=== PATIENT | female | born 1970 | race Caucasian/White ===

== ENCOUNTER → 2016-11-09 | Outpatient (CLI) | payer OTHER ==
[2015-12-23 09:55] VITALS: BP 138/77
[~2016-11-09] MED LIST: GABA-585 PO; MELO7.5T5 PO; NAPR500T3 PO; ONDA4TAB10 SL; OXYC-323 PO; SENN-37 PO; SENN8.6T99 PO
--- NOTE | 2016-11-09 16:04 | RAD ---
PROCEDURE MRI lumbar spine without contrast. HISTORY Bilateral leg weakness TECHNIQUE Multiplanar, multi sequential non contrast MR imaging was performed of the lumbar spine. Contrast: COMPARISON None FINDINGS There is fairly advanced degenerative disc disease L5-S1, mild to moderate degenerative disc disease L3-4 mild disc desiccation L4-5. There are posterior annular tears at L3-4 and L5-S1. Trace L3-4 endplate edema is likely reactive/degenerative in etiology. Conus terminates at the inferior aspect of L2. Vertebral body stature and AP alignment are adequate. There is likely hemangioma of L3, also tiny focus of marrow signal abnormality of the T11 vertebral body more likely a small atypical hemangioma. Not fully included, there are probable cysts of the adnexal regions bilaterally, on the left estimated at 2.6 centimeters. There are multiple uterine masses. L1-L2: Spinal canal and neural foramina are adequate. L2-L3: Neural foramina and spinal canal are adequate. L3-4: There is negligible disc osteophyte complex. Neural foramina and spinal canal are adequate. L4-5: There is mild buckling of the ligamentum flavum and facet degenerative change. Spinal canal and neural foramina are adequate. L5-S1: There is very shallow protrusion more eccentric to the right lateral recess without significant impingement descending S1 nerve root. Spinal canal is overall adequate. Neural foramina are overall adequate. IMPRESSION 1. There is degenerative disc disease greatest L5-S1 and to a lesser degree at L3-4. There is no significant lumbar spinal stenosis or neural foramina compromise. 2. There are adnexal cysts bilaterally, also multiple uterine masses which are not fully included. Electronically signed by: Sanjay Del Rosario MD (Nov 09, 2016 16:03:47)
== END | disposition home or self-care (01) ==
LOC: MRI 14:53
PROVIDERS: ATTEND Family Medicine
DX: M51.37 Other intervertebral disc degeneration, lumbosacral region (principal); E27.8 Other specified disorders of adrenal gland
CPT/HCPCS: 72148

== ENCOUNTER → 2016-11-30 | Outpatient (CLI) | payer OTHER ==
[2015-12-23 09:55] VITALS: BP 138/77
--- NOTE | 2016-11-30 15:20 | RAD ---
Pelvic ultrasound, 11/30/2016: History: Uterine fibroids, abnormal MR exam Transabdominal scans were obtained. The uterus measures 13 x 6 x 7.8 cm. Its contour is lobulated. There are multiple, predominantly hypoechoic uterine masses compatible with fibroids. There is associated distortion of the central uterine echo complex. The visualized portion of the endometrium measures approximately 8 mm in AP dimension. There is a 5 cm hypoechoic mass arising from the right side of the uterus. There is a 4 cm hypoechoic uterine mass on the left. The ovaries are of normal size. There is a 2.2 cm simple cyst in the right ovary. The adnexal regions are otherwise unremarkable. No free fluid is evident in the pelvis. IMPRESSION: 1. Enlarged uterus containing multiple masses most compatible with fibroids. 2. Small right ovarian cyst.
== END | disposition home or self-care (01) ==
LOC: US 13:30
PROVIDERS: ATTEND Family Medicine
DX: D25.9 Leiomyoma of uterus, unspecified (principal); N83.201 Unspecified ovarian cyst, right side
CPT/HCPCS: 76856

== ENCOUNTER → 2016-12-09 | Outpatient (CLI) | payer OTHER ==
[2015-12-23 09:55] VITALS: BP 138/77
--- NOTE | 2016-12-09 10:21 | RAD ---
DATE: December 09, 2016 EXAM: DIGITAL SCREEN BILAT W/CAD HISTORY: Screening study COMPARISON: None. Baseline study. This study was interpreted with the benefit of Computerized Aided Detection (CAD). FINDINGS: The breast parenchyma is replaced with adipose tissue. There is asymmetric nodular density within the upper-outer quadrant of the right breast. Recommend focal compression views and 90 degree mediolateral view of the right breast. Increasing radiation left breast, there is a round nodule seen posteriorly and centrally. There are 2 nodules seen in the MLO projection of the left breast just above the nipple line. Recommend focal compression view left breast MLO projection and a 90 degree mediolateral view left of the breast. No clustering of pleomorphic microcalcifications are evident on either side. IMPRESSION: Bilateral breast nodules. Recommend additional mammographic views. Recommend bilateral breast sonography as well. BI-RADS CATEGORY: 0 INCOMPLETE: NEEDS ADDITIONAL IMAGING EVALUATION AND/OR PRIOR MAMMOGRAMS FOR COMPARISON. RECOMMENDED FOLLOW-UP: ADD ADDITIONAL IMAGING The patient's breast density may affect the ability of mammography to detect breast cancer. There are 4 categories of breast density, A, B, C and D. Breast density A means that most of the breast tissue is replaced with adipose tissue and therefore is not dense. Breast density B means that the breast tissue is mildly dense and scattered. Breast density C means that the breast tissue is heterogeneously dense. Breast density D means that the breast tissue is very dense. Breast densities especially C and D may decrease the sensitivity of mammography to detect breast cancer. Therefore, the patient may benefit from 3-D breast mammography (3D breast tomography) as a part of their screening mammogram. Insurance may or may not pay for this additional imaging. The patient's breast density based on today's mammogram is category an A. PQRS compliance statement: Patient information was entered into a reminder system with a target due date now for the next mammogram. Mammography is a sensitive method for finding small breast cancers, but it does not detect them all and is not a substitute for careful clinical examination. A negative mammogram does not negate a clinically suspicious finding and should not result in delay in biopsying a clinically suspicious abnormality. "Our facility is accredited by the [employer] Mammography Program."
== END | disposition home or self-care (01) ==
LOC: MAMMO 09:24
PROVIDERS: ATTEND Family Medicine
DX: Z12.31 Encounter for screening mammogram for malignant neoplasm of breast (principal)
CPT/HCPCS: G0202; 77067

== ENCOUNTER → 2016-12-16 | Outpatient (CLI) | payer OTHER ==
[2015-12-23 09:55] VITALS: BP 138/77
--- NOTE | 2016-12-16 16:41 | RAD ---
PROCEDURE MRI cervical spine without contrast. HISTORY Chronic worsening right arm weakness and numbness. TECHNIQUE Sagittal T1, sagittal T2, sagittal STIR, axial T2, and axial T2 gradient sequences are provided. COMPARISON None. FINDINGS There is 1-2 millimeters of anterolisthesis at C7-T1. There is otherwise no malalignment. There is no worrisome marrow lesion. There is a probable hemangioma at C7. There is no marrow edema. There is no cord signal abnormality. Cervicomedullary junction is unremarkable. Degenerative findings by individual level are as follows: C2-C3: There is no canal or foraminal compromise. C3-C4: There is a minimal disc bulge without canal or foraminal compromise. There is also minimal facet hypertrophy. C4-C5: There is no canal or foraminal compromise. C5-C6: Disc osteophyte complex and uncinate process spurring are noted without canal or foraminal compromise. C6-C7: There is no canal or foraminal compromise. C7-T1: There is facet hypertrophy with slight anterolisthesis at this level. There is mild foraminal narrowing. IMPRESSION Minimal degenerative changes in the cervical spine without any high-grade canal or foraminal compromise at any level. Electronically signed by: Piter Ibrahim MD (Dec 16, 2016 16:40:22)
== END | disposition home or self-care (01) ==
LOC: MRI 15:24
PROVIDERS: ATTEND Neurological Surgery
DX: M48.02 Spinal stenosis, cervical region (principal); M47.812 Spondylosis without myelopathy or radiculopathy, cervical region
CPT/HCPCS: 72141

== ENCOUNTER → 2016-12-18 | Outpatient (CLI) | payer OTHER ==
[2015-12-23 09:55] VITALS: BP 138/77
--- NOTE | 2016-12-18 14:22 | RAD ---
DATE: 12/18/2016 EXAM: DIGITAL DIAGNOSTIC BILATERAL, BREAST BILATERAL HISTORY: Suspicious screening study COMPARISON: 12/09/2016 This study was interpreted with the benefit of Computerized Aided Detection (CAD). FINDINGS: On the screening study a nodular opacity was noted in the upper outer quadrant of the right breast. A nodule is not clearly demonstrated on the spot compression views. A similar vague opacity is seen superiorly on the straight mediolateral view. This likely represents a patch of normal fibroglandular tissue. Additional views of the left breast confirm the presence of a small smooth 5 mm nodule projected over the posterior aspect of the left breast at the midline on the cc view. It is not clearly demonstrated on the straight mediolateral view but probably lies just superior to the midline of the breast. There are several other patchy fibroglandular type shadows projected over this region. Bilateral breast ultrasound, 12/18/2016: A targeted ultrasound exam of the right breast was performed in the upper outer quadrant. Heterogeneous fibroglandular shadows are evident. No cystic or solid breast nodule is seen. A targeted exam of the central aspect of the left breast was then performed. At the 9:00 location approximately 4 cm from the nipple there is a smooth oval-shaped hyperechoic nodule measuring approximately 8 x 9 x 5 mm. This does not appear to correspond in size or location to the mammographic abnormality. This has a relatively benign appearance and may be a lipoma. Breast malignancies are rarely hyperechoic. No other left breast abnormality is seen. IMPRESSION: 1. No right breast nodule is identified. The small density seen in the upper outer quadrant on the screening mammograms probably represents a patch of normal fibroglandular tissue. 2. Small, smooth benign-appearing central left breast nodule for which no sonographic correlate could be identified. 3. The left breast ultrasound did demonstrate a small benign-appearing hyperechoic nodule at the 9:00 location. 4. Follow-up bilateral mammograms and left breast ultrasound in 6 months is suggested to established stability of these probably benign findings BI-RADS CATEGORY: 3 PROBABLY BENIGN FINDING(S)-SHORT INTERVAL FOLLOW-UP SUGGESTED RECOMMENDED FOLLOW-UP: 6M 6 MONTH FOLLOW-UP PQRS compliance statement: Patient information was entered into a reminder system with a target due date for the next mammogram. Mammography is a sensitive method for finding small breast cancers, but it does not detect them all and is not a substitute for careful clinical examination. A negative mammogram does not negate a clinically suspicious finding and should not result in delay in biopsying a clinically suspicious abnormality. "Our facility is accredited by the [employer] Mammography Program."
== END | disposition home or self-care (01) ==
LOC: MAMMO 13:18
PROVIDERS: ATTEND Family Medicine
DX: R92.8 Other abnormal and inconclusive findings on diagnostic imaging of breast (principal)
CPT/HCPCS: 76641; G0204; 77066

== ENCOUNTER → 2017-02-02 | Outpatient (CLI) | payer OTHER ==
[2015-12-23 09:55] VITALS: BP 138/77
[~2017-02-02] MED LIST changes: +ACET500T68 PO; +ALPR0.5T PO; +ASCO100065 PO; +CHOL2000 PO; +GLUC1CAP48 PO; +IBUP-1027 PO; +IOHEXOL 180 MG/ML 10 ML VIAL. ONE; +MULT1TAB52 PO; +OMEG500C PO; +PARO30TA3 PO; +TURM500C7 PO; +methylPREDNISolone ACETATE 40 MG/ML VIAL. ONE; +methylPREDNISolone ACETATE 80 MG/ML VIAL. ONE
--- NOTE | 2017-02-03 01:59 | PAIN ---
DATE OF SERVICE: 02/02/2017 INITIAL CONSULTATION FOR PAIN CLINIC CHIEF COMPLAINT: Low back, bilateral lower extremity pain, right greater than left. HISTORY OF PRESENT ILLNESS: This is a 47-year-old female who presents with history of pain in low back for many years, about 20 years, worse over the past 2 years or so, gradually increasing, not a result of any specific injury or accident that she is aware of, but she had some work on her knees with medial and anterior cruciate ligament tears and the back pain became worse when she was rehabbing from this. The patient reports that since that time, it is becoming more noticeable in the low back, bilateral lower extremities, right greater than left in the posterior gluteus, posterior thigh, lateral thigh, anterior thigh, posterior calf into the foot with numbness in the right side as well, aching, radiating, sharp, constant, changes during the day, worse with standing and walking, better with sitting. It wakes her from sleep about 3-4 times at night; however, it does affect her ability to walk. She is not using any assistive devices; however. She feels that it does affect her bowel and bladder control, but without any loss of continence. The patient reports she has had some chiropractic treatment. She is doing just stretching and strengthening exercises on her own as well and notes this has helped to a moderate extent about 20%. The patient is taking ibuprofen, Tylenol, Lortab, which helps, but only to a moderate extent as well, maybe 5a0% at best, but she does get some stomach upset from the nonsteroidal anti-inflammatory medications. The patient reports otherwise her disability rating from 0 to 10, 10 being the worst, as a 6 with family and home responsibilities, recreation, social activity, 5 with occupation, sexual behavior, 4 with self care and life support activities. The patient did have an MRI scan of the lumbar spine dated 11/09/2016 showing degenerative disk disease, greatest at L5-S1 at lesser degree at L3-L4 with a very shallow protrusion at L5-S1 ____ lateral recess without significant impingement of the descending S1 nerve roots. PAST MEDICAL HISTORY: Significant for arthritis, urinary frequency. PREVIOUS SURGERY: Include right toe surgery, right knee ACL and MCL repair, fracture of the right ankle in the past requiring surgery, myomectomy for fibroids, right peroneal nerve transposition and wisdom teeth extraction. CURRENT MEDICATIONS: Include vitamins, glucosamine, fish oil, Xanax, ____, paroxetine, ibuprofen and Tylenol. ALLERGIES: The patient has no known drug allergies. SHE HAS NAUSEA FROM CODEINE. FAMILY HISTORY: Significant for lung cancer and strokes. SOCIAL HISTORY: The patient drinks 1-2 beers a week on average, does not smoke. She is , lives with her spouse. No children in the home and she lives locally here in [place], [place]. REVIEW OF SYSTEMS: Positive for those items mentioned in the history of present illness. It is completed in full, well documented. All systems reviewed and otherwise negative. It is complete and on the patient's chart. PHYSICAL EXAMINATION: VITAL SIGNS: The patient's blood pressure is 148/90, pulse is 78, respirations 98.4 degrees Fahrenheit, height is 5 feet 1 inch, weight is 237 pounds. GENERAL: The patient is awake, alert, oriented, appropriate, very pleasant demeanor. HEENT: Head shows normocephalic, atraumatic. Extraocular movements are intact, symmetrical. Oral cavity, mucous membranes are moist and pink. Dentition is intact. NECK: Shows anterior throat supple without palpable lymphadenopathy noted. Swallow reflex is symmetrical. CHEST: Shows normal on inspection. Breath sounds are clear to auscultation bilaterally. HEART: Shows S1 and S2 clear. ABDOMEN: Soft, obese, nontender, nondistended. No palpable organomegaly. No rebound or guarding demonstrated. BACK: Shows spine grossly midline. The patient's thoracic kyphotic curvature is normal in appearance as is lumbar lordotic curvature. Lumbar paraspinous musculature shows symmetrical on inspection. No atrophy or hypertrophy. With palpation shows some mild tenderness to palpation in the lower lumbar distribution bilaterally, but only diffusely without radiation. No tenderness over the spinous processes, sacrum or sacroiliac regions. The patient has good rotational motion of lumbar spine, both laterally greater than 10 degrees right and left as well as extension greater than 10 degrees, forward flexion 45 degrees without difficulty or pain reported. Lower extremities showed deep tendon reflexes 2+ in patellar, 1+ tendo-calcaneus tendons. Motor exam shows 5/5 dorsiflexion, extension, quadriceps and hamstring flexion are symmetrical. Peripheral pulses are 2+ posterior tibial and dorsalis pedis pulses. No peripheral edema is noted. No clubbing, no cyanosis. Lower extremities are warm and dry to touch, equal in color and appearance. Straight leg raise noted to be negative bilaterally as is Gaenslen's and Emeterio's maneuvers are negative bilaterally as well. The patient is able to stand, stand on her toes without difficulty or loss of balance, walks with a normal appearing gait for short distance in the office today, no assistive devices to assist with ambulation such as canes or walkers. IMPRESSION: 1. This is a 47-year-old female with a long history of low back pain, increased over the past 2 years or so with radicular qualities, right greater than left. 2. MRI scan as noted. 3. History of arthritis. PLAN: Options were discussed with the patient including conservative medical management, physical therapy, interventional techniques. She would like to pursue interventional techniques. We discussed lumbar epidural steroid injection using description as well as anatomical models to describe the procedure. Risks were then discussed including, but not limited to, bleeding, infection, possibility of epidural hematoma, subsequent neurologic compromise, dural puncture, headaches, spinal cord and/or nerve damage, side effects of steroid medication and poor results regarding pain control. The patient understands and wishes to proceed. The patient will return to clinic in approximately 2 weeks for followup, was counseled on return appointment, activity level and side effects to be aware of. DIAGNOSIS: Lumbar radiculopathy with lumbar degenerative disk disease. PROCEDURE: Lumbar epidural steroid injection in translaminar approach at the L5-S1 level using C-arm fluoroscopic guidance under sterile prep and drape using local anesthetic. MEDICATION INJECTED: Depo-Medrol 120 mg plus 10 mL preservative-free normal saline and 2 mL of Isovue for contrast. CONDITION AT DISCHARGE: Stable. The patient tolerated procedure well, had no complications. SAPNA TELLEZ MD DR: BENY/ellen JOB#: [id number] / [id number]
== END | disposition home or self-care (01) ==
LOC: PNCL 07:33
PROVIDERS: ATTEND Anesthesiology
DX: M51.16 Intervertebral disc disorders with radiculopathy, lumbar region (principal); M19.90 Unspecified osteoarthritis, unspecified site; Z80.1 Family history of malignant neoplasm of trachea, bronchus and lung; F41.9 Anxiety disorder, unspecified; F32.9 Major depressive disorder, single episode, unspecified; Z72.89 Other problems related to lifestyle; Z86.69 Personal history of other diseases of the nervous system and sense organs; Z88.6 Allergy status to analgesic agent
CPT/HCPCS: 62323; J1030; J1040

== ENCOUNTER 2017-02-14 01:23 | Observation (INO) | payer OTHER ==
[~2017-02-14] VITALS: Ht 154.9 cm; Wt 108.9 kg
[~2017-02-14 01:23] MED LIST changes: -IOHEXOL 180 MG/ML 10 ML VIAL. ONE; -methylPREDNISolone ACETATE 40 MG/ML VIAL. ONE; -methylPREDNISolone ACETATE 80 MG/ML VIAL. ONE
[2017-02-14 02:13] LABS: BILIRUBIN,URINE NEGATIVE (NEG); GLUCOSE,URINE NEGATIVE (NEG); NITRITE,URINE NEGATIVE (NEG); PH,URINE 5.5; PROTEIN,URINE NEGATIVE (NEG-TRACE); UROBILINOGEN,URINE 0.2 mg/dL (0.2 mg/dL)
[2017-02-14 02:20] LABS: BACTERIA,URINE FEW /HPF (0-FEW); RBC,URINE 0 /HPF (0-2); SQUAMOUS EPITHELIAL CELL,UR FEW /LPF; WBC,URINE OCC /HPF (0-4)
[2017-02-14 02:50] LABS: BASO # 0.1 x10^3/uL (0.0-0.2); BASO % 1 % (0-3); EOS % 1 % (0-3); HEMATOCRIT 41.8 % (36.0-47.0); HEMOGLOBIN 13.9 g/dL (12.0-15.5); LYMPH # 2.8 x10^3/uL (1.0-4.8); LYMPH % 22 % (24-48); MEAN CORPUSCULAR HEMOGLOBIN 29 pg (25-35); MEAN CORPUSCULAR HGB CONC 33 g/dL (31-37); MEAN CORPUSCULAR VOLUME 86 fL (79-100); MONO % 5 % (0-9); NEUT % 72 % (31-73); PLATELET COUNT 404 x10^3/uL (140-400); RED BLOOD COUNT 4.85 x10^6/uL (3.50-5.40); RED CELL DISTRIBUTION WIDTH 14.1 % (11.5-14.5)
[2017-02-14 02:59] LABS: CREATININE 0.7 mg/dL (0.6-1.0); GFR 90.5; POTASSIUM 3.9 mmol/L (3.5-5.1)
[2017-02-14 03:06] LABS: ALBUMIN 3.6 g/dL (3.4-5.0); ALBUMIN/GLOBULIN RATIO 0.8 (1.0-1.7); TOTAL BILIRUBIN 0.3 mg/dL (0.2-1.0); TOTAL PROTEIN 7.9 g/dL (6.4-8.2)
[2017-02-14] MEDS ORDERED: MECLIZINE HCL 12.5 MG TABLET. PO ONE (03:15)
[2017-02-14] MEDS ORDERED: IV NORMAL SALINE 1000ML BAG 1,000 ML IV ONE (03:15)
--- NOTE | 2017-02-14 03:22 | RAD ---
INDICATION: vertigo x 4 days COMPARISON: None. TECHNIQUE: Axial CT images obtained through the head without intravenous contrast. One or more of the following individualized dose reduction techniques were utilized for this examination: 1. Automated exposure control; 2. Adjustment of the mA and/or kV according to patient size; 3. Use of iterative reconstruction technique. FINDINGS: 5 mm region of high attenuation extra-axial space on the right near vertex No midline shift. Basal cisterns patents. Ventricles and sulci are globally prominent. No acute osseous abnormality. Orbits and paranasal sinuses unremarkable. Scattered foci of low attenuation within the white matter. IMPRESSION: 1. 5 mm thick region of high attenuation just deep to the calvarium near the vertex on the right. This could be secondary to causes such as a cortical vein coursing through the region but if there is any clinical concern for hemorrhage could be helpful to obtain a follow-up CT in a few hours to ensure no increase in this finding to ensure that there is not an alternative cause such as a small amount of subdural blood. 2. Scattered regions of low attenuation within the white matter. Non-specific in nature but frequently secondary to chronic small vessel ischemic disease. 3. Prominence of ventricles and sulci which is most prominent frontally which can be seen with mild volume loss. Electronically signed by: Dylan Prakash MD (02/14/2017 3:18 AM)
--- NOTE | 2017-02-14 03:53 | PHYS DOC ---
Past Medical History Past Medical History: No Pertinent History, Other Additional Past Medical Histor: DEGENERATIVE DISC DISEASE Past Surgical History: Other Additional Past Surgical Histo: myelectomy x 2, ankle sx, RIGHT KNEE Alcohol Use: Occasionally Drug Use: None Adult General Chief Complaint Chief Complaint: DIZZY/LIGHT HEADED HPI HPI Patient is a 47 year old female who presents here today complaining of dizziness for 4 days along with a headache during that time period as well. 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 Patient denies any fevers shakes chills vomiting or diarrhea. Patient has any chest pain or shortness of breath. Patient denies any dysuria frequency urgency. Patient denies any URI symptoms. Patient denies any new weakness to her lower extremities. Patient reports that she generally has some weakness to her lower 70 secondary to her bilateral lumbar radiculopathy. Patient denies any history of hypertension diabetes liver longer kidney problems. Patient has had no abdominal surgeries in the past. Patient does not smoke drink or do any drugs. 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 Patient denies any head trauma. Patient reports that she's been having dizziness and vertigo-type symptoms. Patient reports that she told her coworkers that if she fell to the ground E benign her. Patient does not feel like she is going to pass out. Patient reports that she feels like the room is spinning and she is on a boat. Patient's physical exam was unremarkable. Patient's TMs were clear. There was no fluid behind the ear canals. Patient's pupils were equally round and reactive to light. Her extraocular motions were intact. Patient had normal funduscopic exam. Patient's heart with regular rate. Lungs were clear. Her abdomen was soft nontender no rebound or guarding. Patient has a nonfocal neurological exam. Patient's ER workup was unremarkable except for a CT scan that had a possible sub-dural hemorrhage. 1. 5 mm thick region of high attenuation just deep to the calvarium near the vertex on the right. This could be secondary to causes such as a cortical vein coursing through the region but if there is any clinical concern for hemorrhage could be helpful to obtain a follow-up CT in a few hours to ensure no increase in this finding to ensure that there is not an alternative cause such as a small amount of subdural blood. 2. Scattered regions of low attenuation within the white matter. Non-specific in nature but frequently secondary to chronic small vessel ischemic disease. 3. Prominence of ventricles and sulci which is most prominent frontally which can be seen with mild volume loss. Electronically signed by: Dylan Prakash MD (02/14/2017 3:18 AM) Given the patient's complaining of a headache and the CT scan that reveals a 5 mm region of high attenuation that is potentially subdural blood we will admit her for observation. Assessment and plan: Dizziness with a headache. Etiology is unclear however patient does have an abnormal CT scan that will require admission for observation. Patient was given meclizine and IV fluids in the ED was no improvement in her headache. Patient reports that her headache is worse since yesterday fluids. Review of Systems Review of Systems Constitutional: Denies fever or chills [] Eyes: Denies change in visual acuity, redness, or eye pain [] HENT: Denies nasal congestion or sore throat [] All other review systems are negative except as documented in the history of present illness portion. Current Medications Current Medications Current Medications Medications (Trade) Dose Ordered Sig/Tomas Start Time Stop Time Status Last Admin Dose Admin Meclizine HCl (Antivert) 25 mg 1X ONCE 02/14/17 03:15 02/14/17 03:16 DC 02/14/17 03:12 25 MG Sodium Chloride 1,000 ml @ 1,000 mls/hr 1X ONCE 02/14/17 03:15 02/14/17 04:14 DC 02/14/17 02:56 1,000 MLS/HR Allergies Allergies Allergies Coded Allergies Type Severity Reaction Last Updated Verified codeine Allergy Intermediate Nausea 12/23/15 Yes Physical Exam Physical Exam Constitutional: Well developed, well nourished, no acute distress, non-toxic appearance. [] HENT: Normocephalic, atraumatic, bilateral external ears normal, oropharynx moist, no oral exudates, nose normal. [] Eyes: PERRLA, EOMI, conjunctiva normal, no discharge. [] Neck: Normal range of motion, no tenderness, supple, no stridor. [] Cardiovascular:Heart rate regular rhythm, no murmur [] Lungs & Thorax: Bilateral breath sounds clear to auscultation [] Abdomen: Bowel sounds normal, soft, no tenderness, no masses, no pulsatile masses. [] Skin: Warm, dry, no erythema, no rash. [] Back: No tenderness, no CVA tenderness. [] Extremities: No tenderness, no cyanosis, no clubbing, ROM intact, no edema. [] Neurologic: Alert and oriented X 3, normal motor function, normal sensory function, no focal deficits noted. [] Psychologic: Affect normal, judgement normal, mood normal. [] Current Patient Data Vital Signs Vital Signs Date Time Temp Pulse Resp B/P (MAP) Pulse Ox O2 Delivery O2 Flow Rate FiO2 02/14/17 02:02 98.0 88 16 137/78 (97) 98 Room Air 98.0 Lab Values Laboratory Tests Test 02/14/17 01:08 02/14/17 01:47 02/14/17 02:40 POC Urine HCG, Qualitative Hcg negative (Negative) Urine Collection Type Unknown Urine Color Yellow Urine Clarity Clear Urine pH 5.5 Urine Specific [place] >=1.030 Urine Protein Negative mg/dL (NEG-TRACE) Urine Glucose (UA) Negative mg/dL (NEG) Urine Ketones (Stick) Negative mg/dL (NEG) Urine Blood Negative (NEG) Urine Nitrite Negative (NEG) Urine Bilirubin Negative (NEG) Urine Urobilinogen Dipstick 0.2 mg/dL (0.2 mg/dL) Urine Leukocyte Esterase Negative (NEG) Urine RBC 0 /HPF (0-2) Urine WBC Occ /HPF (0-4) Urine Squamous Epithelial Cells Few /LPF Urine Bacteria Few /HPF (0-FEW) Urine Mucus Mod /LPF White Blood Count 13.0 x10^3/uL (4.0-11.0) H Red Blood Count 4.85 x10^6/uL (3.50-5.40) Hemoglobin 13.9 g/dL (12.0-15.5) Hematocrit 41.8 % (36.0-47.0) Mean Corpuscular Volume 86 fL (79-100) Mean Corpuscular Hemoglobin 29 pg (25-35) Mean Corpuscular Hemoglobin Concent 33 g/dL (31-37) Red Cell Distribution Width 14.1 % (11.5-14.5) Platelet Count 404 x10^3/uL (140-400) H Neutrophils (%) (Auto) 72 % (31-73) Lymphocytes (%) (Auto) 22 % (24-48) L Monocytes (%) (Auto) 5 % (0-9) Eosinophils (%) (Auto) 1 % (0-3) Basophils (%) (Auto) 1 % (0-3) Neutrophils # (Auto) 9.3 x10^3uL (1.8-7.7) H Lymphocytes # (Auto) 2.8 x10^3/uL (1.0-4.8) Monocytes # (Auto) 0.6 x10^3/uL (0.0-1.1) Eosinophils # (Auto) 0.1 x10^3/uL (0.0-0.7) Basophils # (Auto) 0.1 x10^3/uL (0.0-0.2) Sodium Level 138 mmol/L (136-145) Potassium Level 3.9 mmol/L (3.5-5.1) Chloride Level 102 mmol/L (98-107) Carbon Dioxide Level 28 mmol/L (21-32) Anion Gap 8 (6-14) Blood Urea Nitrogen 23 mg/dL (7-20) H Creatinine 0.7 mg/dL (0.6-1.0) Estimated GFR (Cockcroft-Gault) 90.5 BUN/Creatinine Ratio 33 (6-20) H Glucose Level 101 mg/dL (70-99) H Calcium Level 9.0 mg/dL (8.5-10.1) Total Bilirubin 0.3 mg/dL (0.2-1.0) Aspartate Amino Transferase (AST) 16 U/L (15-37) Alanine Aminotransferase (ALT) 25 U/L (14-59) Alkaline Phosphatase 63 U/L (46-116) Troponin I Quantitative < 0.017 ng/mL (0.000-0.055) Total Protein 7.9 g/dL (6.4-8.2) Albumin 3.6 g/dL (3.4-5.0) Albumin/Globulin Ratio 0.8 (1.0-1.7) L Laboratory Tests 02/14/17 02:40 Laboratory Tests 02/14/17 02:40 EKG EKG [] Radiology/Procedures Radiology/Procedures [] Course & Med Decision Making Course & Med Decision Making Pertinent Labs and Imaging studies reviewed. (See chart for details) [] Dragon Disclaimer Dragon Disclaimer This electronic medical record was generated, in whole or in part, using a voice recognition dictation system. Departure Departure Impression: Primary Impression: Headache Additional Impressions: Vertigo Abnormal CT scan of head Disposition: ADMITTED INPATIENT Admitting Physician: Avis Sawyer Condition: STABLE Referrals: VERONICA CLARK MD (PCP) Problem Qualifiers DELMY JAVIER MD Feb 14, 2017 03:53
[2017-02-14] MEDS: IV NORMAL SALINE 1000ML BAG 1,000 ML IV SCH ×3 (03:55→19:55)
[2017-02-14] MEDS ORDERED: ONDANSETRON PF 4 MG/2 ML VIAL. IV PRN (04:00)
--- NOTE | 2017-02-14 04:19 | ACF ---
Admit Criteria Forms Admit Criteria Forms Admit Criteria Forms VERTIGO Clinical Indications for Admission to Inpatient Care (Place 'X' for any and all applicable criteria): Admission is indicated for ANY ONE of the following(1)(2)(3)(4): [ ]I. Acute bacterial labyrinthitis [X]II. A suspected etiology that requires admission for treatment [ ]III. Inpatient admission required rather than observation care (Also use Vertigo: Observation Care as appropriate) because of ANY ONE of the following: [ ]a) Hemodynamic instability that is severe or persistent [ ]b) Signs or symptoms that are severe or persistent (eg, vomiting , orthostasis, inability to ambulate) [ ]c) Cardiac arrhythmias of immediate concern [ ]d) Severe (new) neurologic findings requiring inpatient care as indicated by ANY ONE of the following(6)(7) [ ]1) Cerebral bleeding, ischemia, or vasospasm(8)(9) [ ]2) Increased intracranial pressure or hydrocephalus(10) (11)(12) [ ]3) Papilledema [ ]4) Cerebral edema [ ]5) Mass effect on CT scan [ ]e) Vomiting that is severe or persistent [ ]f) Continuous IV infusion of anticoagulation, platelet inhibitor, vasoactive, or antiarrhythmic medication [ ]g) Cerebral bleeding, hydrocephalus, or vasospasm monitoring(14) [ ]h) Increased intracranial pressure or cerebral edema monitoring [ ]i) Other condition, treatment or monitoring requiring inpatient admission [ ]IV. Cerebellar, brainstem, or cerebral ischemia or hemorrhage(5) Extended stay beyond goal length of stay may be needed for evaluating and treating a specific cause of dizziness, including(26): [ ]a) Head injury (27) ( Also use Traumatic Brain Injury, Nonsurgical Treatment guideline) [ ]b) New-onset vertebrobasilar vascular insufficiency(23) [ ]c) Acute Meniere disease with intractable symptoms [ ]d) Cardiac arrhythmias or conduction defects [ ]e) Acute neurologic event causing dizziness [ ]f) Myocardial ischemia [ ]g) Acute bacterial labyrinthitis(1) [ ]h) Severe acute vestibular neuronitis(18) The original [employer] [employer] content created by Judi Nichols has been revised. The portions of the content which have been revised are identified through the use of italic text or in bold, and [employer] has neither reviewed nor approved the modified material. All other unmodified content is copyright [facility]. Please see references footnoted in the original [facility] edition 2016 IN[employer]IA PICKENS Feb 14, 2017 04:19
[2017-02-14] MEDS: fentaNYL PF VIAL 100 MCG/2 ML VIAL IV PRN ×5 (04:22→23:38)
[2017-02-14 05:31] VITALS: BP 139/80
[2017-02-14 07:57] VITALS: BP 119/56
[2017-02-14] MEDS: ACETAMINOPHEN 325 MG TABLET. PO PRN ×2 (08:04→20:07)
[2017-02-14] MEDS ORDERED: ALPRAZolam 0.5 MG TABLET PO PRN (10:00)
--- NOTE | 2017-02-14 10:42 | PDOC1 ---
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 acute dizziness for 3 days w. worsening headache. She has recent epidural at [facility] [place] [facility] for back pain, 12 days ago, and had felt well. lumbar radiculopathy no fever or chills sore throat or cough no travel, has not been to the [place] she feels "wobbly" "like I'm on a boat" she has chronic brisk LE relexes from min spinal cervical stenosis, has seen Dr. Wynn, surg is being considered, he wanted pt to see pain clinic for back pain first. no back pain, only headache Past Medical History Cardiovascular: No pertinent hx CENTRAL NERVOUS SYSTEM: Other (cervical radilulopathy, back pain, ) GI: No pertinent hx Heme/Onc: No pertinent hx Hepatobiliary: No pertinent hx Psych: Anxiety Endocrine: Other (obesity) Dermatology: No pertinent hx Social History Smoke: No ALCOHOL: none Drugs: None Current Problem List Problem List Problems Medical Problems: (1) Abnormal CT scan of head Status: Acute (2) Headache Status: Acute (3) Vertigo Status: Acute Problems: Current Medications Current Medications Current Medications Sodium Chloride 1,000 ml @ 1,000 mls/hr 1X ONCE IV Last administered on 02:56; Start 02/14/17 at 03:15; Stop 02/14/17 at 04:14; Status DC Meclizine HCl (Antivert) 25 mg 1X ONCE PO Last administered on 02/14/17 03:12 ; Start 02/14/17 at 03:15; Stop 02/14/17 at 03:16; Status DC Ondansetron HCl (Zofran) 4 mg PRN Q8HRS PRN IV NAUSEA/VOMITING Last administered on 02/14/17 04:22; Start 02/14/17 at 04:00; Stop 02/15/17 at 03:59 Fentanyl Citrate (Fentanyl 2ml Vial) 50 mcg PRN Q2HR PRN IV SEVERE PAIN Last administered on 02/14/17 09:22; Start 02/14/17 at 04:00; Stop 02/15/17 at 03:59 Sodium Chloride 1,000 ml @ 125 mls/hr Q8H IV ; Start 02/14/17 at 03:55; Stop at 03:54 Acetaminophen (Tylenol) 650 mg PRN Q4HRS PRN PO FEVER Last administered on 02/14t 08:04; Start 02/14/17 at 04:00; Stop 02/15/17 at 03:59 Acetaminophen (Tylenol) 1,000 mg DAILY PO ; Start 02/15/17 at 09:00; Status UNV Alprazolam (Xanax) 0.5 mg PRN Q6HRS PRN PO ANXIETY / AGITATION; Start 02/14/17 at 10:00; Status UNV Non-Formulary Medication 30 mg DAILY PO ; Start 02/15/17 at 09:00; Status UNV Active Scripts Active Reported Vitamin D (Cholecalciferol (Vitamin D3)) 2,000 Unit Capsule 1 Cap PO DAILY Vitamin C (Ascorbic Acid) 1,000 Mg Tab.chew 1,000 Mg PO DAILY Multivitamins (Multivitamin) 1 Each Tablet 1 Tab PO DAILY Glucosamine & Chondroitin Cap (Gluc 2KCL/Chondr/Pk Hy/Hy Ac) 1 Each Capsule 2 Each PO Fish Oil (Sandy-3 Fatty Acids) 500 Mg Capsule.dr 1,000 Mg PO Turmeric (Turmeric Root Extract) 500 Mg Capsule 1,000 Mg PO Xanax (Alprazolam) 0.5 Mg Tablet 0.5 Mg PO PRN Q6HRS PRN Paroxetine Hcl 30 Mg Tablet 30 Mg PO DAILY Acetaminophen 500 Mg Tablet 1,000 Mg PO DAILY Ibuprofen 400 Mg Tablet 400 Mg PO QID PRN Allergies Allergies: Coded Allergies: codeine (Verified Allergy, Intermediate, Nausea, 12/23/15) ROS General: No: Chills, Night Sweats, Fatigue, Malaise, Appetite, Other PSYCHOLOGICAL ROS: No: Anxiety, Behavioral Disorder, Concentration difficultie , Decreased libido, Depression, Disorientation, Hallucinations, Hostility, Irritablity, Memory difficulties, Mood Swings, Obsessive thoughts, Physical abuse, Sexual abuse, Sleep disturbances, Suicidal ideation, Other Eyes: No Blurry vision, No Decreased vision, No Double vision, No Dry eyes, No Excessive tearing, No Eye Pain, No Itchy Eyes, No Loss of vision, No Photophobia , No Scotomata, No Uses contacts, No Uses glasses, No Other HEENT: YES: Heacaches, No: Visual Changes, Hearing change, Nasal congestion, Nasal discharge, Oral lesions, Sinus pain, Sore Throat, Epistaxis, Sneezing, Snoring, Tinnitus, Vertigo, Vocal changes, Other ALLERGY AND IMMUNOLOGY: No: Hives, Insect Bite Sensitivity, Itchy/Watery Eyes, Nasal Congestion, Post Nasal Drip, Seasonal Allergies, Other ENDOCRINE: No: Breast Changes, Galactorrhea, Hair Pattern Changes, Hot Flashes , Malaise/lethargy, Mood Swings, Palpitations, Polydipsia/polyuria, Skin Changes , Temperature Intolerance, Unexpected Weight Changes, Other Breast: No New/Changing Breast Lumps, No Nipple changes, No Nipple discharge, No Other Respiratory: No: Cough, Hemoptysis, Orthopnea, Pleuritic Pain, Shortness of breath, SOB with excertion, Sputum Changes, Stridor, Tachypnea, Wheezing, Other Cardiovascular: No Chest Pain, No Palpitations, No Orthopnea, No Paroxysmal Noc. Dyspnea, No Edema, No Lt Headedness, No Other Gastrointestinal: Yes Nausea, No Vomiting, No Abdominal Pain, No Diarrhea, No Constipation, No Melena, No Hematochezia, No Other Genitourinary: No Dysuria, No Frequency, No Incontinence, No Hematuria, No Retention, No Discharge, No Urgency, No Pain, No Flank Pain, No Other, No , No , No , No , No , No , No Musculoskeletal: No Gait Disturbance, No Joint Pain, No Joint Stiffness, No Joint Swelling, No Muscle Pain, No Muscular Weakness, No Pain In:, No Swelling In:, No Other Neurological: Yes Headaches, Yes Impaired Coord/balance, No Behavorial Changes, No Bowel/Bladder ControlChng, No Confusion, No Dizziness, No Gait Disturbance, No Memory Loss, No Numbness/Tingling, No Seizures, No Speech Problems, No Tremors, No Visual Changes, No Weakness, No Other Skin: No Dry Skin, No Eczema, No Hair Changes, No Lumps, No Mole Changes, No Mottling, No Nail Changes, No Pruritus, No Rash, No Skin Lesion Changes, No Other, No Acne Physical Exam General: Alert, Oriented X3, Cooperative, No acute distress HEENT: Atraumatic, PERRLA Lungs: Clear to auscultation Heart: no gallops, no murmurs Abdomen: Normal bowel sounds, Soft Rectal Exam: not examined Extremities: No clubbing, No edema Skin: No breakdown Neuro: Other (reflexes very brisk patellar) Psych/Mental Status: Mental status NL, Mood NL, Other (reports anxiety, feels calm) Vitals Vitals Vital Signs Date Time Temp Pulse Resp B/P (MAP) Pulse Ox O2 Delivery O2 Flow Rate FiO2 02/14/17 10:07 97 Room Air 02/14/17 07:57 98.1 119 15 119/56 (77) 98.1 Labs Labs Laboratory Tests Test 02/14/17 01:08 02/14/17 01:47 02/14/17 02:40 Bedside Urine HCG, Qualitative Hcg negative (Negative) Urine Collection Type Unknown Urine Color Yellow Urine Clarity Clear Urine pH 5.5 Urine Specific [place] >=1.030 Urine Protein Negative mg/dL (NEG-TRACE) Urine Glucose (UA) Negative mg/dL (NEG) Urine Ketones (Stick) Negative mg/dL (NEG) Urine Blood Negative (NEG) Urine Nitrite Negative (NEG) Urine Bilirubin Negative (NEG) Urine Urobilinogen Dipstick 0.2 mg/dL (0.2 mg/dL) Urine Leukocyte Esterase Negative (NEG) Urine RBC 0 /HPF (0-2) Urine WBC Occ /HPF (0-4) Urine Squamous Epithelial Cells Few /LPF Urine Bacteria Few /HPF (0-FEW) Urine Mucus Mod /LPF White Blood Count 13.0 x10^3/uL (4.0-11.0) Red Blood Count 4.85 x10^6/uL (3.50-5.40) Hemoglobin 13.9 g/dL (12.0-15.5) Hematocrit 41.8 % (36.0-47.0) Mean Corpuscular Volume 86 fL (79-100) Mean Corpuscular Hemoglobin 29 pg (25-35) Mean Corpuscular Hemoglobin Concent 33 g/dL (31-37) Red Cell Distribution Width 14.1 % (11.5-14.5) Platelet Count 404 x10^3/uL (140-400) Neutrophils (%) (Auto) 72 % (31-73) Lymphocytes (%) (Auto) 22 % (24-48) Monocytes (%) (Auto) 5 % (0-9) Eosinophils (%) (Auto) 1 % (0-3) Basophils (%) (Auto) 1 % (0-3) Neutrophils # (Auto) 9.3 x10^3uL (1.8-7.7) Lymphocytes # (Auto) 2.8 x10^3/uL (1.0-4.8) Monocytes # (Auto) 0.6 x10^3/uL (0.0-1.1) Eosinophils # (Auto) 0.1 x10^3/uL (0.0-0.7) Basophils # (Auto) 0.1 x10^3/uL (0.0-0.2) Sodium Level 138 mmol/L (136-145) Potassium Level 3.9 mmol/L (3.5-5.1) Chloride Level 102 mmol/L (98-107) Carbon Dioxide Level 28 mmol/L (21-32) Anion Gap 8 (6-14) Blood Urea Nitrogen 23 mg/dL (7-20) Creatinine 0.7 mg/dL (0.6-1.0) Estimated GFR (Cockcroft-Gault) 90.5 BUN/Creatinine Ratio 33 (6-20) Glucose Level 101 mg/dL (70-99) Calcium Level 9.0 mg/dL (8.5-10.1) Total Bilirubin 0.3 mg/dL (0.2-1.0) Aspartate Amino Transf (AST/SGOT) 16 U/L (15-37) Alanine Aminotransferase (ALT/SGPT) 25 U/L (14-59) Alkaline Phosphatase 63 U/L (46-116) Troponin I Quantitative < 0.017 ng/mL (0.000-0.055) Total Protein 7.9 g/dL (6.4-8.2) Albumin 3.6 g/dL (3.4-5.0) Albumin/Globulin Ratio 0.8 (1.0-1.7) Laboratory Tests Test 02/14/17 01:08 02/14/17 01:47 02/14/17 02:40 Bedside Urine HCG, Qualitative Hcg negative (Negative) Urine Collection Type Unknown Urine Color Yellow Urine Clarity Clear Urine pH 5.5 Urine Specific [place] >=1.030 Urine Protein Negative mg/dL (NEG-TRACE) Urine Glucose (UA) Negative mg/dL (NEG) Urine Ketones (Stick) Negative mg/dL (NEG) Urine Blood Negative (NEG) Urine Nitrite Negative (NEG) Urine Bilirubin Negative (NEG) Urine Urobilinogen Dipstick 0.2 mg/dL (0.2 mg/dL) Urine Leukocyte Esterase Negative (NEG) Urine RBC 0 /HPF (0-2) Urine WBC Occ /HPF (0-4) Urine Squamous Epithelial Cells Few /LPF Urine Bacteria Few /HPF (0-FEW) Urine Mucus Mod /LPF White Blood Count 13.0 x10^3/uL (4.0-11.0) Red Blood Count 4.85 x10^6/uL (3.50-5.40) Hemoglobin 13.9 g/dL (12.0-15.5) Hematocrit 41.8 % (36.0-47.0) Mean Corpuscular Volume 86 fL (79-100) Mean Corpuscular Hemoglobin 29 pg (25-35) Mean Corpuscular Hemoglobin Concent 33 g/dL (31-37) Red Cell Distribution Width 14.1 % (11.5-14.5) Platelet Count 404 x10^3/uL (140-400) Neutrophils (%) (Auto) 72 % (31-73) Lymphocytes (%) (Auto) 22 % (24-48) Monocytes (%) (Auto) 5 % (0-9) Eosinophils (%) (Auto) 1 % (0-3) Basophils (%) (Auto) 1 % (0-3) Neutrophils # (Auto) 9.3 x10^3uL (1.8-7.7) Lymphocytes # (Auto) 2.8 x10^3/uL (1.0-4.8) Monocytes # (Auto) 0.6 x10^3/uL (0.0-1.1) Eosinophils # (Auto) 0.1 x10^3/uL (0.0-0.7) Basophils # (Auto) 0.1 x10^3/uL (0.0-0.2) Sodium Level 138 mmol/L (136-145) Potassium Level 3.9 mmol/L (3.5-5.1) Chloride Level 102 mmol/L (98-107) Carbon Dioxide Level 28 mmol/L (21-32) Anion Gap 8 (6-14) Blood Urea Nitrogen 23 mg/dL (7-20) Creatinine 0.7 mg/dL (0.6-1.0) Estimated GFR (Cockcroft-Gault) 90.5 BUN/Creatinine Ratio 33 (6-20) Glucose Level 101 mg/dL (70-99) Calcium Level 9.0 mg/dL (8.5-10.1) Total Bilirubin 0.3 mg/dL (0.2-1.0) Aspartate Amino Transf (AST/SGOT) 16 U/L (15-37) Alanine Aminotransferase (ALT/SGPT) 25 U/L (14-59) Alkaline Phosphatase 63 U/L (46-116) Troponin I Quantitative < 0.017 ng/mL (0.000-0.055) Total Protein 7.9 g/dL (6.4-8.2) Albumin 3.6 g/dL (3.4-5.0) Albumin/Globulin Ratio 0.8 (1.0-1.7) Images Images 1. 5 mm thick region of high attenuation just deep to the calvarium near the vertex on the right. This could be secondary to causes such as a cortical vein coursing through the region but if there is any clinical concern for hemorrhage could be helpful to obtain a follow-up CT in a few hours to ensure no increase in this finding to ensure that there is not an alternative cause such as a small amount of subdural blood. 2. Scattered regions of low attenuation within the white matter. Non-specific in nature but frequently secondary to chronic small vessel ischemic disease. 3. Prominence of ventricles and sulci which is most prominent frontally which can be seen with mild volume loss. VTE Prophylaxis Ordered VTE Prophylaxis Devices: No VTE Pharmacological Prophylaxi: No Assessment/Plan Assessment/Plan headache nausea, some sensation of vertigo "like I'm on a boat" recent Epidural, but 12 days ago, long timeline for CSF leak, no white count or fever or other sign of infection no meningismus, neuro exam largely stable from previous, 1 beat nystagmus Neuro consulted, consider LP, opening pressures, SUMEET LARA MD Feb 14, 2017 10:41
[2017-02-14 10:46] VITALS: BP 142/77
[2017-02-14] MEDS: PARoxetine 10 MG TABLET PO SCH (11:00)
[2017-02-14] MEDS: ACETAMINOPHEN 500 MG TABLET PO SCH (11:48)
--- NOTE | 2017-02-14 12:20 | PDOC2 ---
NEUROLOGY CONSULT Date of Admission Date of Admission Full Report Dictated DATE: 02/14/17 TIME: 12:18 Current Medications Current Medications Current Medications Sodium Chloride 1,000 ml @ 1,000 mls/hr 1X ONCE IV Last administered on 02:56; Start 02/14/17 at 03:15; Stop 02/14/17 at 04:14; Status DC Meclizine HCl (Antivert) 25 mg 1X ONCE PO Last administered on 02/14/17 03:12 ; Start 02/14/17 at 03:15; Stop 02/14/17 at 03:16; Status DC Ondansetron HCl (Zofran) 4 mg PRN Q8HRS PRN IV NAUSEA/VOMITING Last administered on 02/14/17 04:22; Start 02/14/17 at 04:00; Stop 02/15/17 at 03:59 Fentanyl Citrate (Fentanyl 2ml Vial) 50 mcg PRN Q2HR PRN IV SEVERE PAIN Last administered on 02/14/17 11:49; Start 02/14/17 at 04:00; Stop 02/15/17 at 03:59 Sodium Chloride 1,000 ml @ 125 mls/hr Q8H IV ; Start 02/14/17 at 03:55; Stop at 03:54 Acetaminophen (Tylenol) 650 mg PRN Q4HRS PRN PO FEVER Last administered on 02/14 08:04; Start 02/14/17 at 04:00; Stop 02/15/17 at 03:59 Acetaminophen (Tylenol) 1,000 mg DAILY PO Last administered on 02/14/17 11:48 ; Start 02/14/17 at 11:00 Alprazolam (Xanax) 0.5 mg PRN Q6HRS PRN PO ANXIETY / AGITATION; Start 02/14/17 at 10:00 Paroxetine HCl (Paxil) 30 mg DAILY PO ; Start 02/14/17 at 11:00 Meclizine HCl (Antivert) 25 mg TID PO ; Start 02/14/17 at 12:00 Diazepam (Valium) 2 mg TID PO ; Start 02/14/17 at 14:00 Active Scripts Active Reported Vitamin D (Cholecalciferol (Vitamin D3)) 2,000 Unit Capsule 1 Cap PO DAILY Vitamin C (Ascorbic Acid) 1,000 Mg Tab.chew 1,000 Mg PO DAILY Multivitamins (Multivitamin) 1 Each Tablet 1 Tab PO DAILY Glucosamine & Chondroitin Cap (Gluc 2KCL/Chondr/Pk Hy/Hy Ac) 1 Each Capsule 2 Each PO Fish Oil ([place]-3 Fatty Acids) 500 Mg Capsule.dr 1,000 Mg PO Turmeric (Turmeric Root Extract) 500 Mg Capsule 1,000 Mg PO Xanax (Alprazolam) 0.5 Mg Tablet 0.5 Mg PO PRN Q6HRS PRN Paroxetine Hcl 30 Mg Tablet 30 Mg PO DAILY Acetaminophen 500 Mg Tablet 1,000 Mg PO DAILY Ibuprofen 400 Mg Tablet 400 Mg PO QID PRN Allergies Allergies: Coded Allergies: codeine (Verified Allergy, Intermediate, Nausea, 12/23/15) Vitals VITALS Vital Signs Date Time Temp Pulse Resp B/P (MAP) Pulse Ox O2 Delivery O2 Flow Rate FiO2 02/14/17 11:49 97 Room Air 02/14/17 10:46 98.3 80 14 142/77 (98) 98.3 Labs Labs Laboratory Tests Test 02/14/17 01:08 02/14/17 01:47 02/14/17 02:40 Bedside Urine HCG, Qualitative Hcg negative (Negative) Urine Collection Type Unknown Urine Color Yellow Urine Clarity Clear Urine pH 5.5 Urine Specific [place] >=1.030 Urine Protein Negative mg/dL (NEG-TRACE) Urine Glucose (UA) Negative mg/dL (NEG) Urine Ketones (Stick) Negative mg/dL (NEG) Urine Blood Negative (NEG) Urine Nitrite Negative (NEG) Urine Bilirubin Negative (NEG) Urine Urobilinogen Dipstick 0.2 mg/dL (0.2 mg/dL) Urine Leukocyte Esterase Negative (NEG) Urine RBC 0 /HPF (0-2) Urine WBC Occ /HPF (0-4) Urine Squamous Epithelial Cells Few /LPF Urine Bacteria Few /HPF (0-FEW) Urine Mucus Mod /LPF White Blood Count 13.0 x10^3/uL (4.0-11.0) Red Blood Count 4.85 x10^6/uL (3.50-5.40) Hemoglobin 13.9 g/dL (12.0-15.5) Hematocrit 41.8 % (36.0-47.0) Mean Corpuscular Volume 86 fL (79-100) Mean Corpuscular Hemoglobin 29 pg (25-35) Mean Corpuscular Hemoglobin Concent 33 g/dL (31-37) Red Cell Distribution Width 14.1 % (11.5-14.5) Platelet Count 404 x10^3/uL (140-400) Neutrophils (%) (Auto) 72 % (31-73) Lymphocytes (%) (Auto) 22 % (24-48) Monocytes (%) (Auto) 5 % (0-9) Eosinophils (%) (Auto) 1 % (0-3) Basophils (%) (Auto) 1 % (0-3) Neutrophils # (Auto) 9.3 x10^3uL (1.8-7.7) Lymphocytes # (Auto) 2.8 x10^3/uL (1.0-4.8) Monocytes # (Auto) 0.6 x10^3/uL (0.0-1.1) Eosinophils # (Auto) 0.1 x10^3/uL (0.0-0.7) Basophils # (Auto) 0.1 x10^3/uL (0.0-0.2) Sodium Level 138 mmol/L (136-145) Potassium Level 3.9 mmol/L (3.5-5.1) Chloride Level 102 mmol/L (98-107) Carbon Dioxide Level 28 mmol/L (21-32) Anion Gap 8 (6-14) Blood Urea Nitrogen 23 mg/dL (7-20) Creatinine 0.7 mg/dL (0.6-1.0) Estimated GFR (Cockcroft-Gault) 90.5 BUN/Creatinine Ratio 33 (6-20) Glucose Level 101 mg/dL (70-99) Calcium Level 9.0 mg/dL (8.5-10.1) Total Bilirubin 0.3 mg/dL (0.2-1.0) Aspartate Amino Transf (AST/SGOT) 16 U/L (15-37) Alanine Aminotransferase (ALT/SGPT) 25 U/L (14-59) Alkaline Phosphatase 63 U/L (46-116) Troponin I Quantitative < 0.017 ng/mL (0.000-0.055) Total Protein 7.9 g/dL (6.4-8.2) Albumin 3.6 g/dL (3.4-5.0) Albumin/Globulin Ratio 0.8 (1.0-1.7) Laboratory Tests Test 02/14/17 01:08 02/14/17 01:47 02/14/17 02:40 Bedside Urine HCG, Qualitative Hcg negative (Negative) Urine Collection Type Unknown Urine Color Yellow Urine Clarity Clear Urine pH 5.5 Urine Specific [place] >=1.030 Urine Protein Negative mg/dL (NEG-TRACE) Urine Glucose (UA) Negative mg/dL (NEG) Urine Ketones (Stick) Negative mg/dL (NEG) Urine Blood Negative (NEG) Urine Nitrite Negative (NEG) Urine Bilirubin Negative (NEG) Urine Urobilinogen Dipstick 0.2 mg/dL (0.2 mg/dL) Urine Leukocyte Esterase Negative (NEG) Urine RBC 0 /HPF (0-2) Urine WBC Occ /HPF (0-4) Urine Squamous Epithelial Cells Few /LPF Urine Bacteria Few /HPF (0-FEW) Urine Mucus Mod /LPF White Blood Count 13.0 x10^3/uL (4.0-11.0) Red Blood Count 4.85 x10^6/uL (3.50-5.40) Hemoglobin 13.9 g/dL (12.0-15.5) Hematocrit 41.8 % (36.0-47.0) Mean Corpuscular Volume 86 fL (79-100) Mean Corpuscular Hemoglobin 29 pg (25-35) Mean Corpuscular Hemoglobin Concent 33 g/dL (31-37) Red Cell Distribution Width 14.1 % (11.5-14.5) Platelet Count 404 x10^3/uL (140-400) Neutrophils (%) (Auto) 72 % (31-73) Lymphocytes (%) (Auto) 22 % (24-48) Monocytes (%) (Auto) 5 % (0-9) Eosinophils (%) (Auto) 1 % (0-3) Basophils (%) (Auto) 1 % (0-3) Neutrophils # (Auto) 9.3 x10^3uL (1.8-7.7) Lymphocytes # (Auto) 2.8 x10^3/uL (1.0-4.8) Monocytes # (Auto) 0.6 x10^3/uL (0.0-1.1) Eosinophils # (Auto) 0.1 x10^3/uL (0.0-0.7) Basophils # (Auto) 0.1 x10^3/uL (0.0-0.2) Sodium Level 138 mmol/L (136-145) Potassium Level 3.9 mmol/L (3.5-5.1) Chloride Level 102 mmol/L (98-107) Carbon Dioxide Level 28 mmol/L (21-32) Anion Gap 8 (6-14) Blood Urea Nitrogen 23 mg/dL (7-20) Creatinine 0.7 mg/dL (0.6-1.0) Estimated GFR (Cockcroft-Gault) 90.5 BUN/Creatinine Ratio 33 (6-20) Glucose Level 101 mg/dL (70-99) Calcium Level 9.0 mg/dL (8.5-10.1) Total Bilirubin 0.3 mg/dL (0.2-1.0) Aspartate Amino Transf (AST/SGOT) 16 U/L (15-37) Alanine Aminotransferase (ALT/SGPT) 25 U/L (14-59) Alkaline Phosphatase 63 U/L (46-116) Troponin I Quantitative < 0.017 ng/mL (0.000-0.055) Total Protein 7.9 g/dL (6.4-8.2) Albumin 3.6 g/dL (3.4-5.0) Albumin/Globulin Ratio 0.8 (1.0-1.7) Assessment/Plan Assessment/Plan Patient is a pleasant 47-year-old woman who developed dizziness 5 days ago and headache 2 days ago. She had an epidural 12 days ago. The neurologic examination was normal. I will arrange for an MRI brain and an MRV of the intracranial veins. I do not see any evidence for a central nervous system infection so will hold off on an LP at this time. Gradual meclizine and Valium to help with the dizziness. Neurology will reevaluate. AGUILAR JUAN MD Feb 14, 2017 12:20
[2017-02-14] MEDS: MECLIZINE HCL 12.5 MG TABLET. PO SCH ×2 (12:45→20:04)
--- NOTE | 2017-02-14 12:48 | EKG ---
[facility] [address] [place] [address] Test Date: 2017-02-14 Test Time: 02:08:28 Pat Name: VINNY HARDY Department: Room: [facility] Gender: F Planning Coordinator: : 1970 Requested By: SUMEET LARA Order Number: [id number] Reading MD: Breezy Keith Measurements Intervals [place] Rate: 82 P: 23 MN: 118 QRS: 33 QRSD: 100 T: 10 QT: 358 QTc: 421 Interpretive Statements SINUS RHYTHM NONSPECIFIC ST-T WAVE CHANGES. T WAVE INVERSION IN LEAD III RI6.01 Unconfirmed report No previous ECG available for comparison Electronically Signed On 02-15-2017 11:03:38 CDT by Breezy Keith
--- NOTE | 2017-02-14 13:44 | PDOC ---
Infectious Disease Note Vital Sign Vital Signs Vital Signs Date Time Temp Pulse Resp B/P (MAP) Pulse Ox O2 Delivery O2 Flow Rate FiO2 02/14/17 12:50 97 Room Air 02/14/17 10:46 98.3 80 14 142/77 (98) 98.3 Labs Lab Laboratory Tests Test 02/14/17 01:08 02/14/17 01:47 02/14/17 02:40 Bedside Urine HCG, Qualitative Hcg negative (Negative) Urine Collection Type Unknown Urine Color Yellow Urine Clarity Clear Urine pH 5.5 Urine Specific [place] >=1.030 Urine Protein Negative mg/dL (NEG-TRACE) Urine Glucose (UA) Negative mg/dL (NEG) Urine Ketones (Stick) Negative mg/dL (NEG) Urine Blood Negative (NEG) Urine Nitrite Negative (NEG) Urine Bilirubin Negative (NEG) Urine Urobilinogen Dipstick 0.2 mg/dL (0.2 mg/dL) Urine Leukocyte Esterase Negative (NEG) Urine RBC 0 /HPF (0-2) Urine WBC Occ /HPF (0-4) Urine Squamous Epithelial Cells Few /LPF Urine Bacteria Few /HPF (0-FEW) Urine Mucus Mod /LPF White Blood Count 13.0 x10^3/uL (4.0-11.0) Red Blood Count 4.85 x10^6/uL (3.50-5.40) Hemoglobin 13.9 g/dL (12.0-15.5) Hematocrit 41.8 % (36.0-47.0) Mean Corpuscular Volume 86 fL (79-100) Mean Corpuscular Hemoglobin 29 pg (25-35) Mean Corpuscular Hemoglobin Concent 33 g/dL (31-37) Red Cell Distribution Width 14.1 % (11.5-14.5) Platelet Count 404 x10^3/uL (140-400) Neutrophils (%) (Auto) 72 % (31-73) Lymphocytes (%) (Auto) 22 % (24-48) Monocytes (%) (Auto) 5 % (0-9) Eosinophils (%) (Auto) 1 % (0-3) Basophils (%) (Auto) 1 % (0-3) Neutrophils # (Auto) 9.3 x10^3uL (1.8-7.7) Lymphocytes # (Auto) 2.8 x10^3/uL (1.0-4.8) Monocytes # (Auto) 0.6 x10^3/uL (0.0-1.1) Eosinophils # (Auto) 0.1 x10^3/uL (0.0-0.7) Basophils # (Auto) 0.1 x10^3/uL (0.0-0.2) Sodium Level 138 mmol/L (136-145) Potassium Level 3.9 mmol/L (3.5-5.1) Chloride Level 102 mmol/L (98-107) Carbon Dioxide Level 28 mmol/L (21-32) Anion Gap 8 (6-14) Blood Urea Nitrogen 23 mg/dL (7-20) Creatinine 0.7 mg/dL (0.6-1.0) Estimated GFR (Cockcroft-Gault) 90.5 BUN/Creatinine Ratio 33 (6-20) Glucose Level 101 mg/dL (70-99) Calcium Level 9.0 mg/dL (8.5-10.1) Total Bilirubin 0.3 mg/dL (0.2-1.0) Aspartate Amino Transf (AST/SGOT) 16 U/L (15-37) Alanine Aminotransferase (ALT/SGPT) 25 U/L (14-59) Alkaline Phosphatase 63 U/L (46-116) Troponin I Quantitative < 0.017 ng/mL (0.000-0.055) Total Protein 7.9 g/dL (6.4-8.2) Albumin 3.6 g/dL (3.4-5.0) Albumin/Globulin Ratio 0.8 (1.0-1.7) Objective Assessment Headache and dizziness Leukocytosis sec to steroid injection in back Lumbar radiculopathy Obesity Plan Plan of Care no need for antibiotics Do not believe pt has any infection d/w dr Silverio COLBY,JUDY Frye MD Feb 14, 2017 13:44
[2017-02-14] MEDS ORDERED: GADOBUTROL 10 MMOL/10 ML VIAL IV ONE (14:30)
[2017-02-14] MEDS: diazePAM 2 MG TABLET PO SCH ×2 (14:58→20:04)
[2017-02-14 15:05] VITALS: BP 120/85
--- NOTE | 2017-02-14 15:21 | RAD ---
EXAM: 1. MRI brain with and without contrast. 2. MRV head without contrast. HISTORY: Dizziness, headache, abnormal prior CT. TECHNIQUE: MRI and MRV of the brain were obtained before and after the intravenous administration of 10 mL Gadavist. MRA of the head was performed without intravenous contrast. Maximum intensity projections were also performed. COMPARISON: CT 02/14/2017. FINDINGS: There is no diffusion restriction. There are no enhancing lesions. Scattered foci of T2/FLAIR hyperintensity within the white matter indicate mild chronic small vessel ischemic change. There is no evidence of hemorrhage on T2 star. The ventricles are normal in size and position. The paranasal sinuses are clear. The orbits are unremarkable. The temporal bones are unremarkable. The calvarium demonstrates no suspicious lesions. The superior and inferior sagittal sinuses are patent. The transverse sinuses are patent and codominant with the left slightly larger than the right. Both sigmoid sinuses and internal jugular veins are patent. The straight sinus and vein of Ryan are patent. The superficial cerebral veins are unremarkable. IMPRESSION: 1. No acute intracranial findings. Mild chronic small vessel ischemic white matter change. 2. No evidence of hemorrhage. No dural venous sinus thrombosis.
[2017-02-14 19:56] VITALS: BP 117/74
--- NOTE | 2017-02-14 22:45 | CONS ---
DATE OF CONSULTATION: 02/14/2017 REFERRING PHYSICIAN: Dr. Avis Sawyer. REASON FOR CONSULTATION: Dizziness and intractable headache. HISTORY OF PRESENT ILLNESS: The patient is a very pleasant 47-year-old woman who began to develop symptoms of dizziness about 5 days ago. This was more of a swimming sensation of her head. The symptoms did not go away. She then developed a headache about 2 days ago. This began in the bioccipital region and radiated forward. The pain continued to intensify. She had called one of her nursing friends at 1:00 a.m., who advised her to go into the hospital because these were symptom she had never previously experienced. A CT scan was performed in the Emergency Room, which was abnormal, suggesting the possibility of a subdural hematoma or a vein. This has not been associated with loss of hearing or tinnitus. Of note is that she did have an epidural injection on 02/02/2017. These symptoms did not occur within a few days of the epidural. She does have chronic back pain from degenerative disk and joint disease. She has bilateral radiculopathy going down both legs to the outside of her feet. She has not had any associated fever, chills or evidence of infection where the epidural was performed. PAST MEDICAL HISTORY: 1. Lower back pain. 2. Anxiety disorder, which is controlled with medications. 3. Obesity. ALLERGIES: CODEINE. MEDICATIONS PRIOR TO ADMISSION: Tylenol as needed, alprazolam 0.5 mg as needed, vitamin C 1000 mg, vitamin D3, glucosamine/chondroitin, ibuprofen 400 mg as needed, multivitamins, omega 3 fatty acids, paroxetine 30 mg and turmeric 5000 mg. FAMILY HISTORY: Her mother of lung cancer at 48 years. She was a lifelong nonsmoker. Her father on 12/27/2016 of stroke, he had hypercholesterolemia, diabetes and hypertension. Her maternal grandmother had breast cancer a later age. Her paternal grandfather had a myocardial infarction. Her paternal grandmother had cancer. SOCIAL HISTORY: She is and has no children. 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 She smoked a total of 5 packs of cigarettes her entire life and quit many years ago. She drinks alcohol on rare occasions. REVIEW OF SYSTEMS: She has a severe headache, which is bioccipital and radiates forward. Even with fentanyl 50 mcg the headache only improves for 30 minutes. She does not have a stiff neck. She has had no changes in cognition or speech. She has had no loss of hearing or vision. She does not have any nose or sinus trouble. She has been able to swallow without choking. She has not had shortness of breath, chest or abdominal pain. She does not complain of bone or joint pain other than back pain. She has not had any fever or rash. Does not have any gastrointestinal complaints other than some nausea last night without recurrence. She does not have any genitourinary complaints other than an overactive bladder. She has not had fever or rash. She has not had any numbness, tingling or weakness. She has not had impairment of balance. This anxiety disorder is well controlled with the current regimen. She does not complain of easy bruising, bleeding or swelling. She has not had any trauma to the head or neck. PHYSICAL EXAMINATION: VITAL SIGNS: The blood pressure was 142/77, pulse was 80, respirations 14, temperature 98.3 degrees Fahrenheit. Oximetry was 97% on room air. Her weight was 240.2 pounds with a height of 61 inches and a calculated body mass index of 45.4. GENERAL: She was alert, awake and cooperative. Speech was fluent and clear. She had a good fund of recent and remote knowledge. Attention and concentration was intact. She appeared well groomed and well nourished. She was fully oriented. NEUROLOGIC: Examination of the cranial nerves revealed visual adams were full to confrontation. Extraocular movements were intact. The eyes were conjugate. Pursuit movements were smooth and saccadic eye movements were without dysmetria. Pupils were 3-4 mm. Funduscopic exam did not reveal papilledema, exudate or hemorrhage. There were spontaneous venous pulsations easily seen on the right, but not easily seen on the left. The muscles of mastication and facial expression were powerful symmetrically. There was no delay of initiation of smile or eye opening. Hearing was intact to finger rub bilaterally. The palate arches symmetrically and the tongue was midline with full range of motion. Sternocleidomastoid and trapezius were powerful. Muscle bulk and tone was normal. There was no arm drift or abnormal movement. The power was full and symmetric in the upper and lower extremities. Reflexes were 2/4 and symmetric in the upper and lower extremities. The toes were downgoing bilaterally. Coordination testing with [id number], [id number], fine motor and rapid alternating movements was well performed. Sensory examination was intact to pain, light touch, proprioception, graphesthesia, cold thermal and vibration. There was no extinction to double simultaneous stimulation. The gait was of a normal base and a steady walk. She was able to heel, toe, and tandem walk. The Romberg stance was negative, but she did have a tendency to sway. Auscultation of the carotid arteries did not reveal a bruit. Heart rhythm was regular without a murmur. Peripheral pulses were strong and symmetric at the wrists and feet. There was no edema or cyanosis of the extremities. Palpation of the suboccipital region on the left was tender, but not the right. Palpation did not reproduce her headache. There was tightness in the cervical paraspinalis and trapezius, but palpation did not reproduce her symptoms. LABORATORY DATA: The CBC revealed an elevated white blood cell count at 13. Hemoglobin and hematocrit were normal. The platelet count was elevated to 404. The electrolytes were normal. BUN was elevated to 23 and creatinine was 0.7 with a calculated GFR of 90.5. Fasting glucose was 101. The calcium was normal. Liver enzymes were not elevated. Albumin and total protein were normal. Troponin was not elevated. Urinalysis revealed concentrated urine greater than 1.030. There was occasional white blood cells and a few squamous epithelial cells and a few bacteria. Urine hCG was negative. IMAGING: CT scan of the brain was performed early this morning revealing a 5 mm thick region of high attenuation just deep in the calvarium near the vertex on the right, which could be due to cortical vein ____ through the region, but intracranial hemorrhage cannot be excluded. There was nonspecific small vessel disease. IMPRESSION: The patient is a very pleasant 47-year-old woman who developed dizziness 5 days ago and headache 2 days ago. The cause of this is not clear, but could be a systemic process such as a virus. With the CAT scan there is concern of a small subdural hematoma in this region or it may just be artifact from a vein. I am relieved that there is no evidence of intracranial tumor or mass. The neurologic exam was normal except her Romberg stance was slightly wobbly. She did not have evidence of nuchal rigidity to suggest meningitis. RECOMMENDATIONS: I would like to proceed with further investigation with an MRI brain with and without contrast to look for any evidence of inflammation, mass or hemorrhage. I would also like to perform an MRV of the intracranial vein to get a better look at the veins and make sure there is not a thrombosed vein. I will schedule meclizine 25 mg 3 times a day and Valium 2 mg 3 times a day to help with the dizziness. If this is over sedating, we can cut these dosages in half. I would be happy to reevaluate. AGUILAR JUAN MD DR: DAKSHA/ellen JOB#: [id number] / [id number] AVIS Dodd MD, VICENTE MD
[2017-02-14 23:17] VITALS: BP 133/61
--- NOTE | 2017-02-14 23:21 | CONS ---
DATE OF CONSULTATION: 02/14/2017 REQUESTING PHYSICIAN: Dr. Sawyer. REASON FOR CONSULTATION: Rule out infection. The patient with dizziness and headache and had an epidural injection about 12 days ago. HISTORY OF PRESENT ILLNESS: This is a 47-year-old female who has lumbar radiculopathy who underwent epidural steroid injection by Dr. Eyad Yang about 12 days ago. The patient says she is feeling pretty good with that. There is no back pain or leg pain that she has had. The patient about 4 days ago started having some dizziness as if she was floating and some headache and she came in. The patient had a CAT scan done. The patient had a blood work done which showed slight leukocytosis. The patient was seen by Neurology and consult has been requested. The patient denies any fever, chills, nausea, vomiting, diarrhea, any visual symptoms, urinary symptoms or bowel symptoms. There is no back pain. PAST MEDICAL HISTORY: Positive for obesity, anxiety disorder and lumbar radiculopathy. She has had epidural injection done 12 days ago, steroid injection. SOCIAL HISTORY: Negative for smoking, alcohol or illicit drug use. ALLERGIES: ALLERGIC TO CODEINE. CURRENT MEDICATIONS: Reviewed. The patient is not on any antibiotics. REVIEW OF SYSTEMS: As per HPI, all other systems reviewed are negative. PHYSICAL EXAMINATION: GENERAL: Alert, oriented female, not in any distress. VITAL SIGNS: Stable, afebrile. HEENT: NAD. NECK: Supple, no JVP, no lymphadenopathy. LUNGS: Clear. HEART: S1 and S2 regular. ABDOMEN: Benign. EXTREMITIES: No edema or cyanosis. SKIN: Unremarkable. NEUROLOGIC: The patient is neurologically intact. The patient does not have any midline tenderness in the spine, back as well as meningeal signs are negative. LABORATORY DATA: White count is 13,000. BUN and creatinine is normal. Urinalysis unremarkable. CAT scan of the head done which showed some attenuation, may have been just the vessel. Followup MRI has been ordered for to be done today. IMPRESSION: 1. Dizziness and some headache. 2. Leukocytosis secondary to steroid injection in the back. 3. Lumbar radiculopathy. 4. Obesity. RECOMMENDATIONS: I do not see the need for any antibiotics. I do not believe the patient has any infection. Discussed with Dr. Sawyer. Thank you very much, Dr. Sawyer for giving me the opportunity to participate in this patient's care. JUDY COLBY MD DR: KIKO/ellen JOB#: [id number] / [id number]
[2017-02-15 02:50] VITALS: BP 106/57
[2017-02-15 07:00] VITALS: BP 142/91
[2017-02-15] MEDS ORDERED: PARoxetine 10 MG TABLET ONE (08:00)
[2017-02-15] MEDS: PARoxetine 10 MG TABLET PO SCH (08:07)
[2017-02-15] MEDS: ACETAMINOPHEN 500 MG TABLET PO SCH (08:07)
[2017-02-15] MEDS: MECLIZINE HCL 12.5 MG TABLET. PO SCH ×2 (08:07→14:20)
[2017-02-15] MEDS: diazePAM 2 MG TABLET PO SCH ×2 (08:07→14:20)
[2017-02-15 11:00] VITALS: BP 142/86
--- NOTE | 2017-02-15 11:39 | PDOC ---
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 Vital Signs Date Time Temp Pulse Resp B/P (MAP) Pulse Ox O2 Delivery O2 Flow Rate FiO2 02/15/17 11:00 97.8 71 18 142/86 (104) 95 Room Air 97.8 Physical Exam General: Alert, Oriented X3, Cooperative, No acute distress Heart: Regular rate, Normal S1, Normal S2 Lungs: Clear Abdomen: Normal bowel sounds, Soft Extremities: No clubbing, No edema Skin: No rashes, No breakdown Review of Systems Review of Systems co anxiety co vertigo Assessment and Plan Assessmemt and Plan Problems Medical Problems: (1) Abnormal CT scan of head Status: Acute (2) Headache Status: Acute (3) Vertigo Status: Acute FELICIANO Vertigo Small vessel disease on CT head Anxiety Plan Await neuro input today PTOT Gave RX for STATIN ASA DC soon? Problems: Comment Review of Relevant I have reviewed the following items candace (where applicable) has been applied. Labs Laboratory Tests Test 02/14/17 01:08 02/14/17 01:47 02/14/17 02:40 Bedside Urine HCG, Qualitative Hcg negative (Negative) Urine Collection Type Unknown Urine Color Yellow Urine Clarity Clear Urine pH 5.5 Urine Specific Lebeau >=1.030 Urine Protein Negative mg/dL (NEG-TRACE) Urine Glucose (UA) Negative mg/dL (NEG) Urine Ketones (Stick) Negative mg/dL (NEG) Urine Blood Negative (NEG) Urine Nitrite Negative (NEG) Urine Bilirubin Negative (NEG) Urine Urobilinogen Dipstick 0.2 mg/dL (0.2 mg/dL) Urine Leukocyte Esterase Negative (NEG) Urine RBC 0 /HPF (0-2) Urine WBC Occ /HPF (0-4) Urine Squamous Epithelial Cells Few /LPF Urine Bacteria Few /HPF (0-FEW) Urine Mucus Mod /LPF White Blood Count 13.0 x10^3/uL (4.0-11.0) Red Blood Count 4.85 x10^6/uL (3.50-5.40) Hemoglobin 13.9 g/dL (12.0-15.5) Hematocrit 41.8 % (36.0-47.0) Mean Corpuscular Volume 86 fL (79-100) Mean Corpuscular Hemoglobin 29 pg (25-35) Mean Corpuscular Hemoglobin Concent 33 g/dL (31-37) Red Cell Distribution Width 14.1 % (11.5-14.5) Platelet Count 404 x10^3/uL (140-400) Neutrophils (%) (Auto) 72 % (31-73) Lymphocytes (%) (Auto) 22 % (24-48) Monocytes (%) (Auto) 5 % (0-9) Eosinophils (%) (Auto) 1 % (0-3) Basophils (%) (Auto) 1 % (0-3) Neutrophils # (Auto) 9.3 x10^3uL (1.8-7.7) Lymphocytes # (Auto) 2.8 x10^3/uL (1.0-4.8) Monocytes # (Auto) 0.6 x10^3/uL (0.0-1.1) Eosinophils # (Auto) 0.1 x10^3/uL (0.0-0.7) Basophils # (Auto) 0.1 x10^3/uL (0.0-0.2) Sodium Level 138 mmol/L (136-145) Potassium Level 3.9 mmol/L (3.5-5.1) Chloride Level 102 mmol/L (98-107) Carbon Dioxide Level 28 mmol/L (21-32) Anion Gap 8 (6-14) Blood Urea Nitrogen 23 mg/dL (7-20) Creatinine 0.7 mg/dL (0.6-1.0) Estimated GFR (Cockcroft-Gault) 90.5 BUN/Creatinine Ratio 33 (6-20) Glucose Level 101 mg/dL (70-99) Calcium Level 9.0 mg/dL (8.5-10.1) Total Bilirubin 0.3 mg/dL (0.2-1.0) Aspartate Amino Transf (AST/SGOT) 16 U/L (15-37) Alanine Aminotransferase (ALT/SGPT) 25 U/L (14-59) Alkaline Phosphatase 63 U/L (46-116) Troponin I Quantitative < 0.017 ng/mL (0.000-0.055) Total Protein 7.9 g/dL (6.4-8.2) Albumin 3.6 g/dL (3.4-5.0) Albumin/Globulin Ratio 0.8 (1.0-1.7) Medications Current Medications Sodium Chloride 1,000 ml @ 1,000 mls/hr 1X ONCE IV Last administered on 02:56; Start 02/14/17 at 03:15; Stop 02/14/17 at 04:14; Status DC Meclizine HCl (Antivert) 25 mg 1X ONCE PO Last administered on 02/14/17 03:12 ; Start 02/14/17 at 03:15; Stop 02/14/17 at 03:16; Status DC Ondansetron HCl (Zofran) 4 mg PRN Q8HRS PRN IV NAUSEA/VOMITING Last administered on 02/14/17 04:22; Start 02/14/17 at 04:00; Stop 02/15/17 at 03:59 ; Status DC Fentanyl Citrate (Fentanyl 2ml Vial) 50 mcg PRN Q2HR PRN IV SEVERE PAIN Last administered on 02/14/17 23:38; Start 02/14/17 at 04:00; Stop 02/15/17 at 03:59 ; Status DC Sodium Chloride 1,000 ml @ 125 mls/hr Q8H IV ; Start 02/14/17 at 03:55; Stop at 03:54; Status DC Acetaminophen (Tylenol) 650 mg PRN Q4HRS PRN PO FEVER Last administered on 02/14 20:07; Start 02/14/17 at 04:00; Stop 02/15/17 at 03:59; Status DC Acetaminophen (Tylenol) 1,000 mg DAILY PO Last administered on 02/15/17 08:07 ; Start 02/14/17 at 11:00 Alprazolam (Xanax) 0.5 mg PRN Q6HRS PRN PO ANXIETY / AGITATION; Start 02/14/17 at 10:00 Paroxetine HCl (Paxil) 30 mg DAILY PO Last administered on 02/15/17 08:07; Start 02/14/17 at 11:00 Meclizine HCl (Antivert) 25 mg TID PO Last administered on 02/15/17 08:07; Start 02/14/17 at 12:00 Diazepam (Valium) 2 mg TID PO Last administered on 02/15/17 08:07; Start 02/14 at 14:00 Gadobutrol (Gadavist) 10 mmol 1X ONCE IV Last administered on 02/14/17t 14:56 ; Start 02/14/17 at 14:30; Stop 02/14/17 at 14:31; Status DC Active Scripts Active Reported Vitamin D (Cholecalciferol (Vitamin D3)) 2,000 Unit Capsule 1 Cap PO DAILY Vitamin C (Ascorbic Acid) 1,000 Mg Tab.chew 1,000 Mg PO DAILY Multivitamins (Multivitamin) 1 Each Tablet 1 Tab PO DAILY Glucosamine & Chondroitin Cap (Gluc 2KCL/Chondr/Pk Hy/Hy Ac) 1 Each Capsule 2 Each PO Fish Oil ([place]hoe-3 Fatty Acids) 500 Mg Capsule.dr 1,000 Mg PO Turmeric (Turmeric Root Extract) 500 Mg Capsule 1,000 Mg PO Xanax (Alprazolam) 0.5 Mg Tablet 0.5 Mg PO PRN Q6HRS PRN Paroxetine Hcl 30 Mg Tablet 30 Mg PO DAILY Acetaminophen 500 Mg Tablet 1,000 Mg PO DAILY Ibuprofen 400 Mg Tablet 400 Mg PO QID PRN Vitals/I & O Vital Sign - Last 24 Hours 02/14/17 02/14/17 02/14/17 02/14/17 11:49 12:50 15:05 19:41 Temp 98.9 98.9 Pulse 80 Resp 12 B/P (MAP) 120/85 (97) Pulse Ox 97 97 96 O2 Delivery Room Air Room Air Room Air Room Air 02/14/17 02/14/17 02/15/17 02/15/17 19:56 23:17 02:50 07:00 Temp 98.4 98.4 97.7 98.8 98.4 98.4 97.7 98.8 Pulse 93 76 82 76 Resp 20 16 18 18 B/P (MAP) 117/74 (88) 133/61 (85) 106/57 (73) 142/91 (108) Pulse Ox 100 94 95 97 O2 Delivery Room Air Room Air Room Air Room Air 02/15/17 02/15/17 08:00 11:00 Temp 97.8 97.8 Pulse 71 Resp 18 B/P (MAP) 142/86 (104) Pulse Ox 95 O2 Delivery Room Air Room Air Intake and Output 02/14/17 02/14/17 02/15/17 15:00 23:00 07:00 Intake Total 770 ml 570 ml Balance 770 ml 570 ml VENANCIO DEL CID III DO Feb 15, 2017 11:39
[2017-02-15 14:00] LABS: BARBITURATES NEG (NEG); BENZODIAZEPINES NEG (NEG); CANNABINOIDS NEG (NEG); COCAINE NEG (NEG); METHADONE NEG (NEG); OPIATES NEG (NEG); PHENCYCLIDINE NEG (NEG)
[2017-02-15 15:00] VITALS: BP 149/97
--- NOTE | 2017-02-15 18:16 | PDOC ---
PROGRESS NOTES Assessment Assessment IMPRESSION: Headache. Dizziness x 5 days before admission. HTN Chronic back pain. Obesity. No evidence of acute CVA this time. RECOMMENDATIONS/PLAN: Continue Meclizine 25 mg tid for 1-2 weeks. BP control FU with PCP. FU with Neurology. SUBJECTIVE: Dizziness improved on 02/15. OBJECTIVE: No focalized neurological deficits. No vomiting. PAST MEDICAL HISTORY: Lower back pain. Anxiety disorder, which is controlled with medications. Obesity. ALLERGIES: CODEINE. FAMILY HISTORY: Her mother of lung cancer at 48 years. She was a lifelong nonsmoker. Her father on 12/27/2016 of stroke, he had hypercholesterolemia, diabetes and hypertension. Her maternal grandmother had breast cancer a later age. Her paternal grandfather had a myocardial infarction. Her paternal grandmother had cancer. SOCIAL HISTORY: She is and has no children. 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 She smoked a total of 5 packs of cigarettes her entire life and quit many years ago. She drinks alcohol on rare occasions. ALLERGY: Reviewed. MEDICATIONS: Refer to MAR REVIEW OF SYSTEMS: Constitutional: No malnutrition, weight loss, cachexia. Head: No traumatic brain or head injury. Skin: No edema, or rash. Ear: No infection. Eyes: No vision loss, or diplopia. Nose: No bleeding or purulent discharges. Hearing: No hearing decrease. Neck: No injury. Breast: No history of cancer, masses, or discharges. Cardiac: HTN Pulmonary: No CPOD. GI: No GI Ulcer, GI bleeding Urinary/genital: UTI. Endocrine: Obesity. Skeletomuscular: No muscular atrophy, deformity. Neurological: see HP. Psychiatric: Denies drug use/abuse. Otherwise, not [id number] review of systems. PHYSICAL EXAMINATION: General appearance in no acute distress. HEENT: Normocephalic and nontraumatic. Eyes, nose, ears, and throat are unremarkable. Neck is supple. No lymphadenopathy. No bruits are heard over the carotid artery. No Crepitus. Cardiovascular: S1, S2, regular rate and rhythm. Pulmonary: Clear to auscultation bilaterally. Abdomen: Bowel sounds are positive. Abdomen is soft, nontender, and nondistended. Extremities: No rash, lesions, or edema. No restriction of range of motion NEUROLOGICAL EXAMINATION: Alert. Oriented to time, place and person. PERRL. EOMI. CN: no focal findings. Muscle tone: within normal. Muscle strength: 5 DTR: 2 Gait: At baseline normal. Sensory exam: no abnormal findings. No acute cerebellar signs elicited, but Romberg test mildly abnormal. F-T-N test accurate. Objective Objective Vital Signs Date Time Temp Pulse Resp B/P (MAP) Pulse Ox O2 Delivery O2 Flow Rate FiO2 02/15/17 15:00 97.8 72 18 149/97 (114) 97 Room Air 97.8 Intake and Output 02/15/17 07:00 Intake Total 1340 ml Balance 1340 ml Intake Oral 1340 ml # Voids 6 # Bowel Movements 2 Vitals Signs Vitals VS - Last 72 Hours, by Label Date Time Temp Pulse Resp B/P (MAP) Pulse Ox O2 Delivery O2 Flow Rate FiO2 02/15/17 15:00 97.8 72 18 149/97 (114) 97 Room Air 97.8 02/15/17 11:00 97.8 71 18 142/86 (104) 95 Room Air 97.8 02/15/17 08:00 Room Air 02/15/17 07:00 98.8 76 18 142/91 (108) 97 Room Air 98.8 02/15/17 02:50 97.7 82 18 106/57 (73) 95 Room Air 97.7 02/14/17 23:17 98.4 76 16 133/61 (85) 94 Room Air 98.4 02/14/17 19:56 98.4 93 20 117/74 (88) 100 Room Air 98.4 02/14/17 19:41 Room Air 02/14/17 15:05 98.9 80 12 120/85 (97) 96 Room Air 98.9 02/14/17 12:50 97 Room Air 02/14/17 11:49 97 Room Air 02/14/17 10:46 98.3 80 14 142/77 (98) 97 Room Air 98.3 02/14/17 09:22 97 Room Air 02/14/17 08:00 Room Air 02/14/17 07:57 98.1 119 15 119/56 (77) 97 Room Air 98.1 Laboratory Laboratory Laboratory Tests Test 02/15/17 12:35 02/15/17 12:55 Erythrocyte Sedimentation Rate 47 (0-25) Vitamin B12 Level 411 pg/mL (247-911) Thyroid Stimulating Hormone (TSH) 2.332 uIU/mL (0.358-3.74) Urine Opiates Screen Neg (NEG) Urine Methadone Screen Neg (NEG) Urine Barbiturates Neg (NEG) Urine Phencyclidine Screen Neg (NEG) Urine Amphetamine/Methamphetamine Neg (NEG) Urine Benzodiazepines Screen Neg (NEG) Urine Cocaine Screen Neg (NEG) Urine Cannabinoids Screen Neg (NEG) Urine Ethyl Alcohol Neg (NEG) Comment Review of Relevant I have reviewed the following items candace (where applicable) has been applied. RYAN CALABRESE MD Feb 15, 2017 18:15
--- NOTE | 2017-02-16 05:43 | DS ---
DATE OF DISCHARGE: 02/15/2017 ADMISSION DIAGNOSIS: Headache and vertigo. DISCHARGE DIAGNOSES: Resolving headache, resolving vertigo, anxiety, and small vessel disease of the brain noted on CAT scan. 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 She was admitted. We consulted Neurology. We did MRIs and CAT scans and basically just showed a little bit of volume loss and white matter changes. Clinically, she is at her baseline. I discussed the case with the nurse. The patient was also seen and examined this morning. Her heart sounds were normal. Her lungs were clear. Abdomen was soft. Extremities had no edema. Neurologically, there were no focal deficits. We will plan to discharge. DISPOSITION: Home. ACTIVITY: As tolerated. DIET: Low sodium. MEDICATIONS: Please see the MRAD. TOTAL TIME: 32 minutes. VENANCIO DEL CID DO DR: LYDIA/ellen JOB#: [id number] / [id number]
[2017-02-17] MEDS ORDERED: ASPI-482 PO (07:49)
== END 2017-02-15 18:41 | disposition home or self-care (01) ==
LOC: ER 01:23 → 6 SOUTH 03:54
PROVIDERS: ADMIT Internal Medicine; ATTEND Internal Medicine
DX: R51 Headache (principal); R42 Dizziness and giddiness; I73.9 Peripheral vascular disease, unspecified; F41.9 Anxiety disorder, unspecified; I10 Essential (primary) hypertension; G89.29 Other chronic pain; E66.9 Obesity, unspecified; M54.16 Radiculopathy, lumbar region; D72.829 Elevated white blood cell count, unspecified; M48.02 Spinal stenosis, cervical region; M19.90 Unspecified osteoarthritis, unspecified site; T38.0X5A Adverse effect of glucocorticoids and synthetic analogues, initial encounter; Z87.891 Personal history of nicotine dependence; Z82.3 Family history of stroke; Z83.3 Family history of diabetes mellitus; Z80.1 Family history of malignant neoplasm of trachea, bronchus and lung; Z82.49 Family history of ischemic heart disease and other diseases of the circulatory system; Z80.3 Family history of malignant neoplasm of breast
CPT/HCPCS: 36415; 70450; 70546; 70553; 80053; 81001; 81025; 82306; 82607; 84443; 84484; 85027; 85651; 86141; 93005; 96361; 96374; 96375; 96376; 99285; A9585; G0378; G0481; J2405; J3010; J7030; J8597; G0379

== ENCOUNTER → 2017-02-17 | Outpatient (CLI) | payer OTHER ==
[2017-02-15 15:00] VITALS: BP 149/97
[~2017-02-17] MED LIST changes: +ASPI-482 PO
--- NOTE | 2017-02-17 23:54 | PAIN ---
DATE OF SERVICE: 02/17/2017 DIAGNOSES: Lumbar radiculopathy with lumbar degenerative disk disease. HISTORY OF PRESENT ILLNESS: The patient is a 47-year-old female who returns for followup status post lumbar epidural steroid injection x 1. The patient reports about 80% improvement in her low back and right lower extremity. Pain in her leg is feeling much better. The patient reports near 100% improvement in her leg, still some pain in the back that is sharp alternating with dull and aching pain that is off and on, some aching. She did have some cramping in her right leg on one night, but has not returned, also in the right arm, but otherwise has been doing fairly well. She did have some vertigo where she was presented to the Emergency Room and was hospitalized for 2 nights for workup, but no significant findings, some mild white matter changes it sounds like by her report on her brain CT, but otherwise no definitive cause found for the vertigo. The patient reports that she still has some vertigo that is only mild now, but is able to function daily without deficit. The patient reports she has been sleeping better at night with increased activity. She has been doing pool therapy that we had recommended and she finds it is very helpful and she is quite pleased with her progress with the exercise and the pool therapy thus far. The patient reports her pain is a 5 on a scale of 10 at its worst and is at 0 currently. The patient reports no new motor or sensory deficits, no new bowel or bladder incontinence or other complaints. PHYSICAL EXAMINATION: VITAL SIGNS: The patient's blood pressure is 138/78, pulse 94, respirations 18, temperature 98.7 degrees Fahrenheit. Height is 5 feet 1 inch. Weight is 235 pounds. GENERAL: The patient is awake, alert, oriented, appropriate, very pleasant demeanor. HEENT: Head shows normocephalic, atraumatic. Extraocular movements are intact and symmetrical. Oral cavity, mucous membranes are moist and pink. Dentition is intact. NECK: Shows anterior throat supple without palpable lymphadenopathy noted. Swallow reflex is symmetrical. CHEST: Shows normal on inspection. Breath sounds clear to auscultation bilaterally. HEART: Shows S1 and S2 clear. ABDOMEN: Obese, soft, nontender, nondistended. No palpable organomegaly. No rebound or guarding demonstrated. BACK: Shows spine grossly in the midline. Normal appearing thoracic kyphosis and lumbar lordotic curvature. Lumbar paraspinous muscle shows some very mild tenderness with palpation only in the low lumbar distribution without radiation. The patient shows good rotational motion both laterally as well as extension and flexion without difficulty. EXTREMITIES: Lower extremities showed deep tendon reflexes 2+ in the patellar, 1+ tendo-calcaneus tendons are equal. Motor exam is strong with 5/5 dorsiflexion and extension. Options were discussed with the patient and the patient's old chart was reviewed as her current medication regimen updated. Current review of systems updated today as well and we will hold on any further injections as she is doing quite well. As she would like to increase her activity, we recommended increasing her pool activity and therapy. She is also starting some yoga classes soon and we will see how she performs with this. If the pain is returning for worsening in anyway, the patient will follow up on an as needed basis for additional injections if desired. SAPNA TELLEZ MD DR: BENY/ellen JOB#: [id number] / [id number]
== END | disposition home or self-care (01) ==
LOC: PNCL 07:39
PROVIDERS: ATTEND Anesthesiology
DX: M51.16 Intervertebral disc disorders with radiculopathy, lumbar region (principal)
CPT/HCPCS: 99212

== ENCOUNTER → 2017-03-23 | Outpatient (CLI) | payer OTHER ==
[2017-03-23 16:23] LABS: BASO % 1 % (0-3); EOS % 3 % (0-3); HEMATOCRIT 42.9 % (36.0-47.0); HEMOGLOBIN 14.2 g/dL (12.0-15.5); LYMPH # 1.9 x10^3/uL (1.0-4.8); LYMPH % 30 % (24-48); MEAN CORPUSCULAR HEMOGLOBIN 29 pg (25-35); MEAN CORPUSCULAR HGB CONC 33 g/dL (31-37); MEAN CORPUSCULAR VOLUME 86 fL (79-100); MONO % 5 % (0-9); NEUT % 62 % (31-73); PLATELET COUNT 380 x10^3/uL (140-400); RED BLOOD COUNT 4.99 x10^6/uL (3.50-5.40); RED CELL DISTRIBUTION WIDTH 14.1 % (11.5-14.5); WHITE BLOOD COUNT 6.3 x10^3/uL (4.0-11.0)
[2017-03-23 16:38] LABS: ALBUMIN 3.6 g/dL (3.4-5.0); ALBUMIN/GLOBULIN RATIO 0.9 (1.0-1.7); CALCIUM 8.6 mg/dL (8.5-10.1); CREATININE 0.9 mg/dL (0.6-1.0); GFR 67.7; POTASSIUM 3.6 mmol/L (3.5-5.1); TOTAL BILIRUBIN 0.3 mg/dL (0.2-1.0); TOTAL PROTEIN 7.8 g/dL (6.4-8.2)
== END | disposition home or self-care (01) ==
LOC: LAB 15:58
PROVIDERS: ATTEND Family Medicine
DX: D72.829 Elevated white blood cell count, unspecified (principal)
CPT/HCPCS: 80053; 85027; 85651

== ENCOUNTER → 2017-04-12 | Outpatient (CLI) | payer OTHER | END | disposition home or self-care (01) | LOC: LAB 10:18 | PROVIDERS: ATTEND Psychiatry & Neurology Neurology with Special Qualifications in Child Neurology | DX: R20.0 Anesthesia of skin (principal) | CPT/HCPCS: 36415; 82550; 85651 ==

== ENCOUNTER → 2017-05-25 | Outpatient (CLI) | payer OTHER ==
[~2017-05-25] MED LIST changes: +BUPIVACAINE MPF 0.25% 10 ML VIAL. ONE; +IOHEXOL 180 MG/ML 10 ML VIAL. ONE; +methylPREDNISolone ACETATE 40 MG/ML VIAL. ONE; +methylPREDNISolone ACETATE 80 MG/ML VIAL. ONE
--- NOTE | 2017-05-25 16:50 | PAIN ---
DATE OF SERVICE: 05/25/2017 DATE OF SERVICE: 05/25/2017 DIAGNOSES: 1. Lumbar radiculopathy with lumbar degenerative disk disease. 2. Bilateral sacroiliitis. HISTORY OF PRESENT ILLNESS: The patient is a 47-year-old female who returns for followup status post lumbar epidural steroid injection x1 in 02/02/2017. The patient did very well with this with about 80% improvement. She is doing well. She has been doing some physical therapy, which has been helping, but she is having some increased pain in the bilateral posterior gluteus and the inferior aspect of the spine consistent with sacroiliitis. The patient reports her physical therapist has been working with her showing some stretches to do and she has been doing these very religiously. She has also lost some weight, which she is happy about and still has some significant pain; however, more localized in the posterior low back than radiating as it was before in a radicular fashion, some pain in the right lateral calf, which is a cramping, stabbing, aching, sharp, dull, alternating pain and the most significant part stabbing in the low back, which is a 7 on a scale of 10 at its worst, 4 on average and 0 at its least. It is a 4 on a scale of 10 today. The patient reports it does not awake her from sleep. She ____ with lying down or sitting down. It is worse with standing, walking, changing positions, bending or stooping. The patient reports no new motor or sensory deficits, no new bowel or bladder incontinence or other complaints. PHYSICAL EXAMINATION: VITAL SIGNS: The patient's blood pressure 123/81, pulse 74, respirations are 16, temperature 98.2 degrees Fahrenheit, height is 5 feet 1 inch, weight is 228 pounds. GENERAL: The patient is awake, alert, oriented, appropriate, very pleasant demeanor. HEENT: Head shows normocephalic, atraumatic. Extraocular movements are intact and symmetrical. Oral cavity shows mucous membranes moist and pink. Dentition is intact. NECK: Shows anterior throat supple without palpable lymphadenopathy noted. Swallow reflex is symmetrical. Neck shows full rotational motion of cervical spine, both laterally as well as extension and flexion without difficulty. CHEST: Shows normal with inspection. Breath sounds clear to auscultation bilaterally. HEART: Shows S1 and S2 clear. ABDOMEN: Obese, soft, nontender, nondistended. No palpable organomegaly is noted. No rebound or guarding demonstrated. BACK: Shows spine grossly midline. Normal appearing thoracic kyphosis and lumbar lordotic curvature. Lumbar paraspinous musculature shows some mild tenderness in the inferior aspect with palpation bilaterally, but only diffusely without radiation. The patient shows full rotational motion of lumbar spine, both laterally greater than 10 degrees right and left as well as extension greater than 10 degrees, forward flexion 45 degrees without difficulty. With palpation over the sacroiliac region, shows significant tenderness, more on the right than the left over the posterior superior iliac spine inferior to this bilaterally on the sacroiliac joint itself with moderate tenderness on the left and significant tenderness on the right. LOWER EXTREMITIES: Show deep tendon reflexes 2+ in the patellar, 1+ tendo calcaneus tendons. Motor exam is strong with 5/5 dorsiflexion, extension, quadriceps and hamstring flexion equal. Peripheral pulses are 1+ posterior tibial and dorsalis pedis pulses. No peripheral edema is noted. The patient has a positive Gaenslen's sign bilaterally, worse on the right, more symptomatic with external rotation and posterior displacement of the right thigh and hip, but again positive bilaterally. Options were discussed with the patient and the patient's old chart was reviewed as her current medication regimen updated. Current review of systems updated today as well. We will proceed with the bilateral sacroiliac joint injections today with fluoroscopic guidance. Risks were again discussed including, but not limited to bleeding, infection, possibility of intravascular injection sequelae, spread of local anesthetic and numbness, side effects of steroid medications, exposure to fluoroscopy and poor results regarding pain control. The patient understands and wishes to proceed. The patient will return to clinic in approximately 2 weeks for followup. She was counseled on return appointment, activity levels and side effects to be aware of. DIAGNOSIS: Bilateral sacroiliitis. PROCEDURE: Bilateral sacroiliac joint injections with C-arm fluoroscopic guidance under sterile prep and drape using local anesthetic. MEDICATION INJECTED: A total of 120 mg Depo-Medrol, 60 mg per side, a total of 4 mL of 0.25% bupivacaine, 2 mL per side, and a total of 4 mL of contrast, 2 mL per side as well with good spread in the sacroiliac joint at each, with negative aspiration. Condition at discharge is stable. The patient tolerated procedure well, had no complications. SAPNA TELLEZ MD DR: BENY/ellen JOB#: [id number] / [id number]
== END | disposition home or self-care (01) ==
LOC: PNCL 07:52
PROVIDERS: ATTEND Anesthesiology
DX: M46.1 Sacroiliitis, not elsewhere classified (principal); M51.16 Intervertebral disc disorders with radiculopathy, lumbar region; F41.9 Anxiety disorder, unspecified; F32.9 Major depressive disorder, single episode, unspecified; Z72.89 Other problems related to lifestyle; Z87.39 Personal history of other diseases of the musculoskeletal system and connective tissue; Z88.6 Allergy status to analgesic agent
CPT/HCPCS: G0260; J1030; J1040; J3490; 27096

== ENCOUNTER 2017-06-02 18:35 | Emergency (ER) | payer OTHER ==
[~2017-06-02 18:35] MED LIST changes: -BUPIVACAINE MPF 0.25% 10 ML VIAL. ONE; -IOHEXOL 180 MG/ML 10 ML VIAL. ONE; -NAPR500T3 PO; +NAPR500T4 PO; -methylPREDNISolone ACETATE 40 MG/ML VIAL. ONE; -methylPREDNISolone ACETATE 80 MG/ML VIAL. ONE
[2017-06-02 18:59] VITALS: BP 166/81
[2017-06-02] MEDS ORDERED: DIAZ5TAB PO (19:16)
--- NOTE | 2017-06-02 19:16 | PHYS DOC ---
Past Medical History Past Medical History: No Pertinent History, Other Additional Past Medical Histor: DEGENERATIVE DISC DISEASE Past Surgical History: Other Additional Past Surgical Histo: myelectomy x 2, ankle sx, RIGHT KNEE Alcohol Use: Occasionally Drug Use: None Adult General Chief Complaint Chief Complaint: LOWER BACK PAIN OR INJURY HPI HPI Patient is a 47 year old female with a history of chronic back pain with sciatica who presents today with exacerbation of chronic back pain with sciatica. Patient states she went for physical therapy today and developed more pain. Patient denies any trauma. She states her pain is radiating to bilateral lower extremities. Denies any loss of bowel bladder function. She states she follows up with the pain clinic. She states she was seen last week and was given injections to her bilateral sacroiliac joints. Review of Systems Review of Systems Constitutional: Denies fever or chills [] Musculoskeletal: Exacerbation of chronic back pain with sciatica Integument: Denies rash or skin lesions [] Neurologic: Denies headache, focal weakness or sensory changes [] Allergies Allergies Allergies Coded Allergies Type Severity Reaction Last Updated Verified codeine Allergy Intermediate Nausea 12/23/15 Yes Physical Exam Physical Exam Constitutional: Well developed, well nourished, no acute distress, non-toxic appearance. [] Abdomen: Bowel sounds normal, soft, no tenderness, no masses, no pulsatile masses. [] Skin: Warm, dry, no erythema, no rash. [] Back: Mild tenderness to bilateral SI joints worse on the right side, no midline lumbar spine tenderness, no CVA tenderness. [] Extremities: No tenderness, no cyanosis, no clubbing, ROM intact, no edema. [] Neurologic: Alert and oriented X 3, normal motor function, normal sensory function, no focal deficits noted. [] Psychologic: Affect normal, judgement normal, mood normal. [] Current Patient Data Vital Signs Vital Signs Date Time Temp Pulse Resp B/P (MAP) Pulse Ox O2 Delivery O2 Flow Rate FiO2 06/02/17 18:59 97.8 100 18 97 Room Air 97.8 EKG EKG [] Radiology/Procedures Radiology/Procedures [] Course & Med Decision Making Course & Med Decision Making Pertinent Labs and Imaging studies reviewed. (See chart for details) Patient is in the ED with complaints of exacerbation of chronic back pain with sciatica. She was given pain relief in the ED and discharged with Valium. Follow -up with the pain clinic next week. Dragon Disclaimer Dragon Disclaimer This electronic medical record was generated, in whole or in part, using a voice recognition dictation system. Departure Departure Impression: Primary Impression: Chronic low back pain with sciatica Disposition: HOME, SELF-CARE Condition: STABLE Referrals: VERONICA CLARK MD (PCP) follow up with your doctor and the pain clinic as soon as you can Patient Instructions: Back Pain, Adult, Sciatica with Rehab-SportsMed Additional Instructions: You were seen with exacerbation of chronic low back pain with sciatica. Continue following up with the pain clinic and doing physical therapy as prescribed. Do not drive or operate machinery on the [employer]. Scripts Diazepam (VALIUM) 5 Mg Tablet 5 MG PO TID, #15 TAB Prov: ROBI TOBAR APRN 06/02/17 Problem Qualifiers Primary Impression: Chronic low back pain with sciatica Back pain laterality: bilateral Sciatica laterality: bilateral sciatica Qualified Codes: M54.42 - Lumbago with sciatica, left side; M54.41 - Lumbago with sciatica, right side; G89.29 - Other chronic pain ROBI TOBAR APRN Jun 02, 2017 19:16
[2017-06-02] MEDS ORDERED: KETOROLAC 60 MG/2 ML INJ. IM ONE (19:45)
[2017-06-02] MEDS ORDERED: MORPHINE SULFATE 10 MG/ML VIAL. IM ONE (19:45)
[2017-06-02] MEDS ORDERED: diazePAM 5 MG TABLET PO ONE (19:45)
== END 2017-06-02 19:34 | disposition home or self-care (01) ==
LOC: ER 18:35
DX: G89.29 Other chronic pain (principal); M54.42 Lumbago with sciatica, left side; M54.41 Lumbago with sciatica, right side; Z88.5 Allergy status to narcotic agent
CPT/HCPCS: 96372; 99284; J1885; J2270

== ENCOUNTER → 2017-06-08 | Outpatient (CLI) | payer OTHER ==
[2017-06-02 18:59] VITALS: BP 166/81
[~2017-06-08] MED LIST changes: +DIAZ5TAB PO; +IOHEXOL 180 MG/ML 10 ML VIAL. ONE; +methylPREDNISolone ACETATE 40 MG/ML VIAL. ONE; +methylPREDNISolone ACETATE 80 MG/ML VIAL. ONE
--- NOTE | 2017-06-08 09:30 | PAIN ---
DATE OF SERVICE: 06/08/2017 DIAGNOSIS: Lumbar radiculopathy with lumbar degenerative disk disease. HISTORY OF PRESENT ILLNESS: The patient is a 47-year-old female who returns for followup status post lumbar epidural steroid injection x 1 in January of this year and bilateral sacroiliac joint injections on 05/25/2017. The patient reports that the left side is completely resolved and 100% better after the last injection but the right side, still significantly painful with radiating pain into the gluteus and thigh on the right side bad enough to where she was prompted to go to the Emergency Department about 2 weeks ago secondary to the pain in the right hip and leg, radiating to the right thigh posteriorly to about the knee. The patient reports she had a Toradol shot there and morphine and that calmed it down where she was able to get home and do more physical therapy, stretching and strengthening which she has been doing all along which has been better, but the right side still remains problematic again, left side 100% improved. She reports no new motor or sensory deficits, no new bowel or bladder incontinence. Reports pain as a 9 on a scale of 10, worse average about 4, can be as low as 0, it is about 3 today. The patient reports sharp, severe can be intense and unbearable but it is off and on in intensity, radiating from the low back and the right posterior gluteus, posterior thigh, posterior calf, occasionally. The patient reports no new motor or sensory deficits. She is sleeping better at night, much better with sitting or lying down, worse with standing, walking, and changing positions. PHYSICAL EXAMINATION: VITAL SIGNS: The patient's blood pressure 118/74, pulse 85, respirations 18, temperature 98.2 degrees Fahrenheit. Weight is 227 pounds. GENERAL: The patient is awake, alert, oriented, appropriate, very pleasant demeanor. HEENT: Head shows normocephalic, atraumatic. Extraocular movements are intact and symmetrical. Oral cavity shows mucous membranes are moist and pink. Dentition is intact. NECK: Shows anterior throat supple. CHEST: Shows normal on inspection. Breath sounds clear to auscultation bilaterally. HEART: Shows S1, S2 clear. ABDOMEN: Obese, soft, nontender, nondistended. BACK: Shows spine grossly midline. Normal thoracic kyphosis and lumbar lordotic curvatures. Lumbar paraspinous muscle shows some mild tenderness with palpation only, the right side of the low lumbar distribution is firm, more so than the left, but without radiation, without asymmetry. The patient shows full rotational motion of lumbar spine, both laterally as well as extension and flexion without difficulty or pain reported. EXTREMITIES: Lower extremities show deep tendon reflexes at tendo-calcaneus tendons are equal. Motor exam is strong with 5/5 dorsiflexion, extension, quadriceps and hamstring flexion. Options were discussed with the patient. The patient's chart was reviewed as her current medication regimen updated. Current review of systems updated today as well. We will proceed with a second lumbar epidural steroid injection with fluoroscopic guidance. Risks were again discussed including, but not limited to bleeding, infection, possibility of epidural hematoma and subsequent neurologic compromise, dural puncture, headaches, spinal cord and/or nerve damage, side effects of steroid medication and poor results regarding pain control. The patient understands and wishes to proceed. The patient will return to clinic in approximately 2 weeks for followup. She was counseled as to return appointment, activity level and side effects to be aware of. DIAGNOSIS: Lumbar radiculopathy with lumbar degenerative disk disease. PROCEDURES: Lumbar epidural steroid injection in translaminar approach at the L5-S1 level using C-arm fluoroscopic guidance under sterile prep and drape using local anesthetic. Medication injected a total of 120 mg Depo-Medrol plus 10 mL preservative free normal saline and 2 mL of Isovue for contrast. CONDITION AT DISCHARGE: Stable. The patient tolerated procedure well, had no complications. SAPNA TELLEZ MD DR: BENY/ellen JOB#: [id number] / [id number]
== END | disposition home or self-care (01) ==
LOC: PNCL 07:45
PROVIDERS: ATTEND Anesthesiology
DX: M51.16 Intervertebral disc disorders with radiculopathy, lumbar region (principal); F41.9 Anxiety disorder, unspecified; F32.9 Major depressive disorder, single episode, unspecified; F17.200 Nicotine dependence, unspecified, uncomplicated; Z87.39 Personal history of other diseases of the musculoskeletal system and connective tissue; Z72.89 Other problems related to lifestyle; Z88.6 Allergy status to analgesic agent
CPT/HCPCS: 62323; J1030; J1040

== ENCOUNTER 2017-11-10 07:46 | Day surgery (SDC) | payer OTHER ==
[1980-11-10] MEDS: BUPIVACAINE MPF 0.5% 30 ML VIAL. IJ (09:43)
[1980-11-10] MEDS: LIDOCAINE 1% PF 30 ML VIAL. INJ (09:43)
[~2017-11-10 07:46] MED LIST changes: -ACET500T68 PO; -ALPR0.5T PO; -ASCO100065 PO; -ASPI-482 PO; +BUPIVACAINE MPF 0.5% 30 ML VIAL.; -CHOL2000 PO; -DIAZ5TAB PO; -GABA-585 PO; -GLUC1CAP48 PO; -IBUP-1027 PO; -IOHEXOL 180 MG/ML 10 ML VIAL. ONE; +LIDOCAINE 1% PF 2 ML VIAL. ID; +LIDOCAINE 1% PF 30 ML VIAL.; -MELO7.5T5 PO; +MORPHINE SULFATE 4 MG/ML DISP.SYRIN. IV; -MULT1TAB52 PO; -NAPR500T4 PO; -OMEG500C PO; -ONDA4TAB10 SL; +ONDANSETRON PF 4 MG/2 ML VIAL. IV; -OXYC-323 PO; -PARO30TA3 PO; +PROCHLORPERAZINE 10 MG/2 ML VIAL. IV; -SENN-37 PO; -SENN8.6T99 PO; -TURM500C7 PO; +ceFAZolin 2GM PREMIX 2 GM/50 ML BAG IV; +fentaNYL PF VIAL 100 MCG/2 ML VIAL IV; -methylPREDNISolone ACETATE 40 MG/ML VIAL. ONE; -methylPREDNISolone ACETATE 80 MG/ML VIAL. ONE
[2017-11-10 08:20] LABS: NEG OBC UR NEG; POS OBC UR POS; U PREG PATIENT NEGATIVE (NEG)
[2017-11-10] MEDS ORDERED: SCOPOLAMINE 1.5MG PATCH. TD (08:22)
[2017-11-10] MEDS: IV RINGERS,LACTATED 1000ML 1,000 ML IV (08:26)
[2017-11-10] MEDS: SCOPOLAMINE 1.5MG PATCH. TD (08:27)
[2017-11-10] MEDS ORDERED: ONDANSETRON PF 4 MG/2 ML VIAL. (09:19)
[2017-11-10] MEDS ORDERED: PROPOFOL 20 ML IV (09:19)
[2017-11-10] MEDS ORDERED: LIDOCAINE 1% PF 5 ML VIAL. (09:19)
[2017-11-10] MEDS ORDERED: DEXAMETHASONE SOD PHOS 20 MG/5 ML VIAL. (09:19)
[2017-11-10] MEDS ORDERED: fentaNYL PF VIAL 100 MCG/2 ML VIAL (09:20)
[2017-11-10] MEDS ORDERED: MIDAZOLAM HCL/PF 2 MG/2 ML VIAL. (09:21)
[2017-11-10] MEDS ORDERED: KETOROLAC 30 MG/ML INJ FOR OR. INJ (10:17)
[2017-11-10] MEDS ORDERED: SEVOFLURANE 31 TO 60 MINUTES. IH (10:22)
[2017-11-10] MEDS: HYDROcodone/APAP 5/325MG 1 TAB TABLET PO (10:59)
== END 2017-11-10 11:45 | disposition home or self-care (01) ==
LOC: SURG 07:46
DX: G56.03 Carpal tunnel syndrome, bilateral upper limbs (principal); F41.9 Anxiety disorder, unspecified; F32.9 Major depressive disorder, single episode, unspecified; Z87.891 Personal history of nicotine dependence; Z88.5 Allergy status to narcotic agent; Z98.890 Other specified postprocedural states; Z88.8 Allergy status to other drugs, medicaments and biological substances
CPT/HCPCS: 64721; 81025; J0690; J1100; J1885; J2250; J2405; J2704; J3010; J3490; J7120

== ENCOUNTER 2018-10-23 04:24 | Emergency (ER) | payer OTHER ==
[~2018-10-23] VITALS: Ht 154.9 cm; Wt 108.0 kg
[~2018-10-23 04:24] MED LIST changes: +ACET500T68 PO; +ALPR0.5T PO; +ASCO100065 PO; +ASPI-482 PO; -BUPIVACAINE MPF 0.5% 30 ML VIAL.; +CHOL2000 PO; +DIAZ5TAB PO; +GABA-585 PO; +GLUC1CAP48 PO; +IBUP-1027 PO; -LIDOCAINE 1% PF 2 ML VIAL. ID; -LIDOCAINE 1% PF 30 ML VIAL.; +MELO7.5T5 PO; -MORPHINE SULFATE 4 MG/ML DISP.SYRIN. IV; +MULT1TAB52 PO; +NAPR-514 PO; +OMEG500C PO; +ONDA4TAB10 SL; -ONDANSETRON PF 4 MG/2 ML VIAL. IV; +OXYC1TAB15 PO; +PARO30TA3 PO; -PROCHLORPERAZINE 10 MG/2 ML VIAL. IV; +SENN-37 PO; +SENN8.6T99 PO; +TURM500C7 PO; -ceFAZolin 2GM PREMIX 2 GM/50 ML BAG IV; -fentaNYL PF VIAL 100 MCG/2 ML VIAL IV
[2018-10-23 04:54] LABS: BASO # 0.1 x10^3/uL (0.0-0.2); BASO % 1 % (0-3); EOS # 0.2 x10^3/uL (0.0-0.7); EOS % 2 % (0-3); HEMATOCRIT 42.3 % (36.0-47.0); HEMOGLOBIN 13.8 g/dL (12.0-15.5); LYMPH # 3.1 x10^3/uL (1.0-4.8); LYMPH % 26 % (24-48); MEAN CORPUSCULAR HEMOGLOBIN 28 pg (25-35); MEAN CORPUSCULAR HGB CONC 33 g/dL (31-37); MEAN CORPUSCULAR VOLUME 85 fL (79-100); MONO # 0.8 x10^3/uL (0.0-1.1); MONO % 7 % (0-9); NEUT # 7.8 x10^3uL (1.8-7.7); NEUT % 65 % (31-73); PLATELET COUNT 400 x10^3/uL (140-400); RED BLOOD COUNT 4.99 x10^6/uL (3.50-5.40); RED CELL DISTRIBUTION WIDTH 14.8 % (11.5-14.5); WHITE BLOOD COUNT 11.9 x10^3/uL (4.0-11.0)
[2018-10-23 05:02] LABS: CALCIUM 9.2 mg/dL (8.5-10.1); CREATININE 0.8 mg/dL (0.6-1.0); GFR 77.2; POTASSIUM 3.7 mmol/L (3.5-5.1)
[2018-10-23 05:04] LABS: PREG TEST PT QUAL NEGATIVE (NEG)
[2018-10-23 05:08] LABS: ALBUMIN 3.6 g/dL (3.4-5.0); ALBUMIN/GLOBULIN RATIO 0.9 (1.0-1.7); MAGNESIUM 1.9 mg/dL (1.8-2.4); TOTAL BILIRUBIN 0.3 mg/dL (0.2-1.0); TOTAL PROTEIN 7.8 g/dL (6.4-8.2)
--- NOTE | 2018-10-23 05:29 | PHYS DOC ---
Past Medical History Past Medical History: No Pertinent History, Other Additional Past Medical Histor: DEGENERATIVE DISC DISEASE Past Surgical History: Other Additional Past Surgical Histo: myelectomy x 2, ankle sx, RIGHT KNEE Alcohol Use: Occasionally Drug Use: None Adult General Chief Complaint Chief Complaint: Palpitations HPI HPI Patient is a 48 year old female presents with intermittent palpitations described as regular and frequent skipped PVCs. Symptom onset was yesterday. Denies dizziness headache, chest pain, shortness of breath. Drinks 1-2 cups of coffee daily, denies routine use of stimulants other than caffeine. Patient is not on any decongestants her cough medications. Patient recently started supplement for treatment of hot flashes 2 weeks ago and has been exercising gym. No leg pain or swelling, no history of hypertension. No other acute symptoms or complaints.[] Review of Systems Review of Systems Review symptoms as per history of present illness. All other review of symptoms negative. All other systems were reviewed and found to be within normal limits, except as documented in this note. Current Medications Current Medications Current Medications Medications (Trade) Dose Ordered Sig/Tomas Start Time Stop Time Status Last Admin Dose Admin Sodium Chloride 1,000 ml @ 1,000 mls/hr 1X ONCE 10/23/18 05:30 10/23/18 06:29 10/23/18 05:29 1,000 MLS/HR Allergies Allergies Allergies Coded Allergies Type Severity Reaction Last Updated Verified diphenhydramine Allergy Intermediate 11/10/17 Yes codeine Adverse Reaction Intermediate Nausea 11/10/17 Yes Physical Exam Physical Exam Constitutional: Well developed, well nourished, no acute distress, non-toxic appearance. [] HENT: Normocephalic, atraumatic, bilateral external ears normal, oropharynx moist, no oral exudates, nose normal. [] Eyes: PERRLA, EOMI, conjunctiva normal, no discharge. [] Neck: Normal range of motion, no tenderness, supple, no stridor. [] Cardiovascular: Frequent PVCs, regular rate[] Lungs & Thorax: Bilateral breath sounds clear to auscultation [] Abdomen: Bowel sounds normal, soft, no tenderness. [] Skin: Warm, dry, no erythema, no rash. [] Back: No tenderness, no CVA tenderness. [] Extremities: No tenderness, no edema. [] Neurologic: Alert and oriented X 3, normal motor function, normal sensory function, no focal deficits noted. [] Psychologic: Affect normal, judgement normal, mood normal. [] Current Patient Data Vital Signs Vital Signs Date Time Temp Pulse Resp B/P (MAP) Pulse Ox O2 Delivery O2 Flow Rate FiO2 10/23/18 04:25 98.1 63 18 201/82 (121) 99 Room Air 98.1 Lab Values Laboratory Tests Test 10/23/18 04:40 White Blood Count 11.9 x10^3/uL (4.0-11.0) H Red Blood Count 4.99 x10^6/uL (3.50-5.40) Hemoglobin 13.8 g/dL (12.0-15.5) Hematocrit 42.3 % (36.0-47.0) Mean Corpuscular Volume 85 fL (79-100) Mean Corpuscular Hemoglobin 28 pg (25-35) Mean Corpuscular Hemoglobin Concent 33 g/dL (31-37) Red Cell Distribution Width 14.8 % (11.5-14.5) H Platelet Count 400 x10^3/uL (140-400) Neutrophils (%) (Auto) 65 % (31-73) Lymphocytes (%) (Auto) 26 % (24-48) Monocytes (%) (Auto) 7 % (0-9) Eosinophils (%) (Auto) 2 % (0-3) Basophils (%) (Auto) 1 % (0-3) Neutrophils # (Auto) 7.8 x10^3uL (1.8-7.7) H Lymphocytes # (Auto) 3.1 x10^3/uL (1.0-4.8) Monocytes # (Auto) 0.8 x10^3/uL (0.0-1.1) Eosinophils # (Auto) 0.2 x10^3/uL (0.0-0.7) Basophils # (Auto) 0.1 x10^3/uL (0.0-0.2) Sodium Level 137 mmol/L (136-145) Potassium Level 3.7 mmol/L (3.5-5.1) Chloride Level 101 mmol/L (98-107) Carbon Dioxide Level 24 mmol/L (21-32) Anion Gap 12 (6-14) Blood Urea Nitrogen 19 mg/dL (7-20) Creatinine 0.8 mg/dL (0.6-1.0) Estimated GFR (Cockcroft-Gault) 77.2 BUN/Creatinine Ratio 24 (6-20) H Glucose Level 111 mg/dL (70-99) H Calcium Level 9.2 mg/dL (8.5-10.1) Magnesium Level 1.9 mg/dL (1.8-2.4) Total Bilirubin 0.3 mg/dL (0.2-1.0) Aspartate Amino Transferase (AST) 23 U/L (15-37) Alanine Aminotransferase (ALT) 27 U/L (14-59) Alkaline Phosphatase 59 U/L (46-116) Troponin I Quantitative < 0.017 ng/mL (0.000-0.055) Total Protein 7.8 g/dL (6.4-8.2) Albumin 3.6 g/dL (3.4-5.0) Albumin/Globulin Ratio 0.9 (1.0-1.7) L Thyroid Stimulating Hormone (TSH) 3.982 uIU/mL (0.358-3.74) H Serum Test, Qualitative Negative (NEG) Laboratory Tests 10/23/18 04:40 Laboratory Tests 10/23/18 04:40 EKG EKG [EKG: Sinus tach, quadrigeminy, nonspecific ST-T wave changes. Heart rate 1:15, QTC 508.] Radiology/Procedures Radiology/Procedures CXR: NAD[] Course & Med Decision Making Course & Med Decision Making Pertinent Labs and Imaging studies reviewed. (See chart for details) [Frequent PVCs with intermittent bigeminy, no chest pain shortness of breath. Blood pressure improved without treatment. Lab, EKG chest x-ray reviewed. IV fluid bolus given. Current endorsed to oncoming ERP provider at 06:00 with anticipated cardiology consult for recommendations and management.] Dragon Disclaimer Dragon Disclaimer This electronic medical record was generated, in whole or in part, using a voice recognition dictation system. Departure Departure Impression: Primary Impression: Palpitations Additional Impression: Bigeminal rhythm Condition: STABLE Referrals: VERONICA CLARK MD (PCP) Problem Qualifiers RACHEL MCKAY DO Oct 23, 2018 05:29
[2018-10-23] MEDS ORDERED: IV NORMAL SALINE 1000ML BAG 1,000 ML IV ONE (05:30)
--- NOTE | 2018-10-23 06:30 | RAD ---
EXAM: AP View of the chest DATE: 10/23/2018 5:29 AM INDICATION: arrythmia, X 2 DAYS COMPARISON: No Prior FINDINGS: The heart is not enlarged. Mediastinal and hilar contours are normal. No focal parenchymal airspace opacity. No pleural effusion or pneumothorax. IMPRESSION: 1. No radiographic evidence for acute cardiopulmonary process. Electronically signed by: Reymundo Caraballo MD (10/23/2018 6:27 AM) [facility]
[2018-10-23 07:00] VITALS: BP 160/97
[2018-10-23 07:33] LABS: BILIRUBIN,URINE NEGATIVE (NEG); CLARITY,URINE CLEAR; COLOR,URINE YELLOW; NITRITE,URINE NEGATIVE (NEG); PH,URINE 5.5; PROTEIN,URINE NEGATIVE (NEG-TRACE); UROBILINOGEN,URINE 0.2 mg/dL (0.2 mg/dL)
[2018-10-23 07:50] LABS: SQUAMOUS EPITHELIAL CELL,UR MOD /LPF
[2018-10-23 07:51] LABS: BACTERIA,URINE 0 /HPF (0-FEW); RBC,URINE OCC /HPF (0-2); WBC,URINE OCC /HPF (0-4)
--- NOTE | 2018-10-23 11:52 | EKG ---
[facility] [address] [place] [address] Test Date: 2018-10-23 Test Time: 04:32:35 Pat Name: VINNY HARDY Department: Room: Gender: Braider Setter: : 1970 Requested By: RACHEL MCKAY Order Number: [id number] Reading MD: Henry Velasquez Measurements Intervals [place] Rate: P: NH: QRS: QRSD: T: QT: QTc: Interpretive Statements Compared to ECG 02/14/2017 02:08:28 Sinus rhythm no longer present ST (T wave) deviation no longer present T-wave abnormality no longer present Electronically Signed On 11-01-2018 10:38:23 MENTAL RETARDATION AIDE by Henry Velasquez
[2018-10-24] MEDS ORDERED: METO25TA4 PO (17:07)
== END 2018-10-23 07:15 | disposition home or self-care (01) ==
LOC: ER 04:24
DX: R00.2 Palpitations (principal); R00.8 Other abnormalities of heart beat; Z88.5 Allergy status to narcotic agent
CPT/HCPCS: 36415; 71045; 80053; 81001; 83735; 84439; 84443; 84484; 84703; 85025; 93005; 99284; J7030

== ENCOUNTER 2018-10-24 04:54 | Observation (INO) | payer OTHER ==
[~2018-10-24] VITALS: Ht 154.9 cm; Wt 108.0 kg
[2018-10-24] MEDS ORDERED: ASPIRIN CHEWABLE 81 MG TABLET. PO ONE (05:30)
--- NOTE | 2018-10-24 05:35 | PHYS DOC ---
Past Medical History Past Medical History: No Pertinent History, Other Additional Past Medical Histor: DEGENERATIVE DISC DISEASE Past Surgical History: Other Additional Past Surgical Histo: myelectomy x 2, ankle sx, RIGHT KNEE Alcohol Use: Occasionally Drug Use: None Adult General Chief Complaint Chief Complaint: CHEST PAIN [facility] HPI Patient is a 48 year old female presents with chief complaint of chest pain and palpitations patient was seen here last night for frequent PVCs quadrIGEMINY with plan for outpatient echo and Holter. 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 She is still feeling the palpitations as well she does report mild anxiety denies shortness of breath no leg swelling no history of blood clots. Review of Systems Review of Systems Constitutional: Denies fever or chills [] Eyes: Denies change in visual acuity, redness, or eye pain [] HENT: Denies nasal congestion or sore throat [] Respiratory: Denies cough or shortness of breath [] Cardiovascular: No additional information not addressed in HPI [] GI: Denies abdominal pain, nausea, vomiting, bloody stools or diarrhea [] : Denies dysuria or hematuria [] Musculoskeletal: Denies back pain or joint pain [] Integument: Denies rash or skin lesions [] Neurologic: Denies headache, focal weakness or sensory changes [] Endocrine: Denies polyuria or polydipsia [] All other systems were reviewed and found to be within normal limits, except as documented in this note. Current Medications Current Medications Allergies Allergies Allergies Coded Allergies Type Severity Reaction Last Updated Verified diphenhydramine Allergy Intermediate 11/10/17 Yes codeine Adverse Reaction Intermediate Nausea 11/10/17 Yes Physical Exam Physical Exam Constitutional: Well developed, well nourished, no acute distress, non-toxic appearance. [] HENT: Normocephalic, atraumatic, bilateral external ears normal, oropharynx moist, no oral exudates, nose normal. [] Eyes: PERRLA, EOMI, conjunctiva normal, no discharge. [] Neck: Normal range of motion, no tenderness, supple, no stridor. [] Cardiovascular:REGULARLY IRREGULAR POSSIBLE MURMUR NTOED Lungs & Thorax: Bilateral breath sounds clear to auscultation [] Abdomen: Bowel sounds normal, soft, no tenderness, no masses, no pulsatile masses. [] Skin: Warm, dry, no erythema, no rash. [] Back: No tenderness, no CVA tenderness. [] Extremities: No tenderness, no cyanosis, no clubbing, ROM intact, no edema. [] Neurologic: Alert and oriented X 3, normal motor function, normal sensory function, no focal deficits noted. [] Psychologic: Affect normal, judgement normal, mood MILD ANXIETY Current Patient Data Vital Signs Vital Signs Date Time Temp Pulse Resp B/P (MAP) Pulse Ox O2 Delivery O2 Flow Rate FiO2 10/24/18 05:03 56 24 201/117 (145) 100 Room Air 10/24/18 05:00 98.7 98.7 EKG EKG []BIGMEINY RATE 106. NO OBVIOUS ISCHEMIA NOTED IN LIGHT OF THAT. CXR FROM YESTERDAY WAS NEGATIVE ACUTE Radiology/Procedures Radiology/Procedures [] Course & Med Decision Making Course & Med Decision Making Pertinent Labs and Imaging studies reviewed. (See chart for details) 48 YO F WITH HX OF bigeminy presenting with some chest pain intermittent in nature as well as bigeminy on the monitor. Patient does report some anxiety however she is having some chest discomfort she is obese she has a family history of vascular disease her first blood pressure also here is 201 systolic but then came down to the 140's without treatment. given all of the above her second visit in 24 hours and found to admit her to the hospital for observation serial troponins and echocardiogram cardiac consultation etc. I spoke with Dr. wood at 5:30 AM regarding the above It certainly could all just be anxiety but given the blood pressure think observation is reasonable. waiting on labworkup at this time, sign over to walter to check labs Dragon Disclaimer Dragon Disclaimer This electronic medical record was generated, in whole or in part, using a voice recognition dictation system. Departure Departure Impression: Primary Impression: Chest pain Additional Impression: Bigeminy Disposition: ADMITTED INPATIENT Admitting Physician: Avis Wood Condition: STABLE Referrals: VERONICA CLARK MD (PCP) Problem Qualifiers TERRY ZEE MD Oct 24, 2018 05:35
[2018-10-24 05:39] LABS: BASO # 0.1 x10^3/uL (0.0-0.2); BASO % 1 % (0-3); EOS # 0.2 x10^3/uL (0.0-0.7); EOS % 2 % (0-3); HEMATOCRIT 41.8 % (36.0-47.0); HEMOGLOBIN 13.6 g/dL (12.0-15.5); LYMPH # 2.5 x10^3/uL (1.0-4.8); LYMPH % 25 % (24-48); MEAN CORPUSCULAR HEMOGLOBIN 28 pg (25-35); MEAN CORPUSCULAR HGB CONC 33 g/dL (31-37); MEAN CORPUSCULAR VOLUME 85 fL (79-100); MONO # 0.6 x10^3/uL (0.0-1.1); MONO % 7 % (0-9); NEUT # 6.5 x10^3uL (1.8-7.7); NEUT % 66 % (31-73); PLATELET COUNT 383 x10^3/uL (140-400); RED BLOOD COUNT 4.92 x10^6/uL (3.50-5.40); RED CELL DISTRIBUTION WIDTH 14.7 % (11.5-14.5); WHITE BLOOD COUNT 9.9 x10^3/uL (4.0-11.0)
[2018-10-24] MEDS ORDERED: METOPROLOL TART IMMED RELEASE 25 MG TABLET. PO ONE (05:45)
[2018-10-24 05:53] LABS: CALCIUM 8.8 mg/dL (8.5-10.1); CREATININE 0.7 mg/dL (0.6-1.0); GFR 90.1; POTASSIUM 3.9 mmol/L (3.5-5.1)
[2018-10-24 05:56] LABS: ALBUMIN 3.4 g/dL (3.4-5.0); ALBUMIN/GLOBULIN RATIO 0.9 (1.0-1.7); MAGNESIUM 1.9 mg/dL (1.8-2.4); TOTAL BILIRUBIN 0.3 mg/dL (0.2-1.0); TOTAL PROTEIN 7.4 g/dL (6.4-8.2)
[2018-10-24] MEDS ORDERED: MAGNESIUM SULFATE 2GM 50 ML IV ONE (06:15)
[2018-10-24 07:42] VITALS: BP 140/83
--- NOTE | 2018-10-24 09:19 | PDOC2 ---
ARIA PEDERSON MATCH UP PERSON 10/24/18 0919: CARDIAC CONSULT DATE OF CONSULT Date of Consult DATE: 10/24/18 TIME: 09:13 REASON FOR CONSULT Reason for Consult: Chest pain Bigeminy REFERRING PHYSICIAN Referring Physician: Dr. Soto SOURCE Source: Chart review, Patient HISTORY OF PRESENT ILLNESS HISTORY OF PRESENT ILLNESS This is a 48 yo female who initially presented to the ED yesterday morning early due to palpitations x 3 days. ophthalmic dispenser was notable for frequent PVCs. Patient was discharged with plan for outpatient echocardiogram and event monitor. Patient was recommended to return to the ED if symptoms worsened or chest pain developed. Patient reports she went home and felt pretty well initially. During the afternoon hours, began having palpitations again. Progressively worsened throughout the evening. Went to bed. Was unable to sleep and palpitations persisted and were very frequent and strong. Was nauseated and had a few sharp pain in her left chest that lasted seconds in duration. Early this morning, decided to return to the ED as symptoms were worsening. Denies any associated dizziness, diaphoresis, palpitations, or SOA. Does have a history of PVCs. 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 PAST MEDICAL HISTORY Cardiovascular: Other (PVCs) Pulmonary: No pertinent hx CENTRAL NERVOUS SYSTEM: Other (no pertinent hx) GI: No pertinent hx Heme/Onc: No pertinent hx Psych: Anxiety, Depression Musculoskeletal: Other (no pertinent hx) Rheumatologic: No pertinent hx Infectious disease: No pertinent hx ENT: No pertinent hx Renal/: No pertinent hx Endocrine: No pertinent hx Dermatology: No pertinent hx PAST SURGICAL HISTORY Past Surgical History: No pertinent history FAMILY HISTORY Family History: Diabetes, Hypertension, Stroke SOCIAL HISTORY Smoke: No ALCOHOL: none Drugs: None Lives: with Family CURRENT MEDICATIONS CURRENT MEDICATIONS Current Medications Medications (Trade) Dose Ordered Sig/Tomas Route PRN Reason Start Time Stop Time Status Last Admin Dose Admin Aspirin (Children'S Aspirin) 324 mg 1X ONCE PO 10/24/18 05:30 10/24/18 05:31 DC 10/24/18 06:03 Metoprolol Tartrate (Lopressor) 25 mg 1X ONCE PO 10/24/18 05:45 10/24/18 05:46 DC 10/24/18 07:26 Magnesium Sulfate 50 ml @ 25 mls/hr 1X ONCE IV 10/24/18 06:15 10/24/18 08:14 DC 10/24/18 07:26 ALLERGIES ALLERGIES: Coded Allergies: diphenhydramine (Verified Allergy, Intermediate, 11/10/17) codeine (Verified Adverse Reaction, Intermediate, Nausea, 11/10/17) ROS Review of System 14 point ROS conducted with pertinent positives noted above in HPI. PHYSICAL EXAM General: Alert, Oriented X3, Cooperative, No acute distress HEENT: Atraumatic, Mucous membr. moist/pink Lungs: Clear to auscultation, Normal air movement Heart: Regular rate, No murmurs, Other (occasional PVCs) Abdomen: Soft, No tenderness Extremities: No edema, Normal pulses Skin: No significant lesion Neuro: Normal speech, Sensation intact Psych/Mental Status: Mental status NL, Mood NL MUSCULOSKELETAL: No deformity VITALS VITALS Vital Signs Date Time Temp Pulse Resp B/P (MAP) Pulse Ox O2 Delivery O2 Flow Rate FiO2 10/24/18 07:54 Room Air 10/24/18 07:42 98.4 83 16 140/83 (102) 98.4 10/24/18 06:03 97 LABS Lab: Laboratory Tests Test 10/24/18 05:25 White Blood Count 9.9 x10^3/uL (4.0-11.0) Red Blood Count 4.92 x10^6/uL (3.50-5.40) Hemoglobin 13.6 g/dL (12.0-15.5) Hematocrit 41.8 % (36.0-47.0) Mean Corpuscular Volume 85 fL (79-100) Mean Corpuscular Hemoglobin 28 pg (25-35) Mean Corpuscular Hemoglobin Concent 33 g/dL (31-37) Red Cell Distribution Width 14.7 % (11.5-14.5) Platelet Count 383 x10^3/uL (140-400) Neutrophils (%) (Auto) 66 % (31-73) Lymphocytes (%) (Auto) 25 % (24-48) Monocytes (%) (Auto) 7 % (0-9) Eosinophils (%) (Auto) 2 % (0-3) Basophils (%) (Auto) 1 % (0-3) Neutrophils # (Auto) 6.5 x10^3uL (1.8-7.7) Lymphocytes # (Auto) 2.5 x10^3/uL (1.0-4.8) Monocytes # (Auto) 0.6 x10^3/uL (0.0-1.1) Eosinophils # (Auto) 0.2 x10^3/uL (0.0-0.7) Basophils # (Auto) 0.1 x10^3/uL (0.0-0.2) Maternal Serum HCG Beta Subunit 1 mIU/mL (0-5) Sodium Level 140 mmol/L (136-145) Potassium Level 3.9 mmol/L (3.5-5.1) Chloride Level 101 mmol/L (98-107) Carbon Dioxide Level 26 mmol/L (21-32) Anion Gap 13 (6-14) Blood Urea Nitrogen 15 mg/dL (7-20) Creatinine 0.7 mg/dL (0.6-1.0) Estimated GFR (Cockcroft-Gault) 90.1 BUN/Creatinine Ratio 21 (6-20) Glucose Level 120 mg/dL (70-99) Calcium Level 8.8 mg/dL (8.5-10.1) Magnesium Level 1.9 mg/dL (1.8-2.4) Total Bilirubin 0.3 mg/dL (0.2-1.0) Aspartate Amino Transf (AST/SGOT) 16 U/L (15-37) Alanine Aminotransferase (ALT/SGPT) 25 U/L (14-59) Alkaline Phosphatase 55 U/L (46-116) Troponin I Quantitative < 0.017 ng/mL (0.000-0.055) Total Protein 7.4 g/dL (6.4-8.2) Albumin 3.4 g/dL (3.4-5.0) Albumin/Globulin Ratio 0.9 (1.0-1.7) ASSESSMENT/PLAN ASSESSMENT/PLAN 1. Chest pain, atypical. Troponin negative x2- AMI ruled out. Most probably related to #2 2. Palpitations; having frequent PVCs, bigeminy, trigeminy. Improved with BB 3. Hypothyroidism, mild. TSH 3.9 4. Anxiety/depression; as per PCP Recommendations Lipids- statin if indicated Check echo to assess LV systolic function Add metoprolol for suppression. Consider event monitor upon discharge GURMEET BORREGO MD 10/24/182030: CARDIAC CONSULT ASSESSMENT/PLAN ASSESSMENT/PLAN Patient seen and examined. 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 CP with atypical features ID ruled out. 2D echo showed normal LV function without any wall motion abnormalities PVC's frequency improved along with symptoms with beta blockers Plan outpatient event monitor to assess PVC burden and MPI to rule out ischemic etiology for her chest pain Thank you for your consultation ARIA PEDERSON APRN Oct 24, 2018 09:19 GURMEET BORREGO MD Oct 24, 2018 20:31
[2018-10-24 09:43] LABS: CHOLESTEROL/HDL RATIO 3.6
[2018-10-24 11:00] VITALS: BP 102/64
--- NOTE | 2018-10-24 11:32 | CARD ---
MR#: [id number] Date of Study: 10/24/2018 Ordering Physician: ARIA PEDERSON, Referring Physician: SUMEET LARA, Tech: Chasity Kennedy APPROVED REPORT EXAM: Two-dimensional and M-mode echocardiogram with Doppler and color Doppler. Other Information Quality : Average INDICATION Palpitations 2D DIMENSIONS RVDd2.3 (2.9-3.5cm)Left Atrium(2D)3.1 (1.6-4.0cm) IVSd1.1 (0.7-1.1cm)Aortic Root(2D)3.0 (2.0-3.7cm) LVDd4.1 (3.9-5.9cm)LVOT Diameter2.1 (1.8-2.4cm) PWd0.9 (0.7-1.1cm)LVDs2.5 (2.5-4.0cm) FS (%) 46.2 %SV59.4 ml LVEF(%)78.0 (>50%) Aortic Valve AoV Peak Richard.167.9cm/sAoV VTI30.1cm AO Peak GR.11.3mmHgLVOT VTI 19.04cm AO Mean GR.6mmHg TDI Lateral E' P. V11.78cm/sMedial E' P. V7.98cm/s Tricuspid Valve TR P. Cahwjwot046vy/sRAP [id number] TR Peak Gr.85rpEeZOCO78dlIh Pulmonary Vein S1 Hadcmzsh29.3cm/sS2 Qafdcnzi28.17cm/s D2 Byyigjtw54.2cm/sPVa [id number] LEFT VENTRICLE The left ventricle is normal size. There is normal left ventricular wall thickness. The left ventricu lar systolic function is normal. The Ejection Fraction is 65%. There is normal LV segmental wall jj on. RIGHT VENTRICLE The right ventricle is normal size. There is normal right ventricular wall thickness. The right ventr icular systolic function is normal. ATRIA The left atrium size is normal. The right atrium size is normal. The interatrial septum is intact wit h no evidence for an atrial septal defect or patent foramen ovale as noted on 2-D or Doppler imaging. AORTIC VALVE The aortic valve is normal in structure and function. Doppler and Color Flow revealed no significant aortic regurgitation. There is no significant aortic valvular stenosis. MITRAL VALVE The mitral valve is normal in structure and function. There is no evidence of mitral valve prolapse. There is no mitral valve stenosis. Doppler and Color-flow revealed trace mitral regurgitation. TRICUSPID VALVE The tricuspid valve is normal in structure and function. Doppler and Color Flow revealed trace tricus pid regurgitation. There is no tricuspid valve stenosis. PULMONIC VALVE The pulmonary valve is normal in structure and function. Doppler and Color Flow revealed trace pulmon ic valvular regurgitation. GREAT VESSELS The aortic root is normal in size. The IVC is normal in size and collapses >50% with inspiration. PERICARDIAL EFFUSION There is no evidence of significant pericardial effusion. Critical Notification Critical Value: No <Conclusion> The left ventricular systolic function is normal. The Ejection Fraction is 65%. There is normal LV segmental wall motion. Trace mitral regurgitation. Trace tricuspid regurgitation. There is no evidence of significant pericardial effusion. Signed by : Henry Velasquez, Electronically Approved : 10/24/2018 11:31:18
--- NOTE | 2018-10-24 13:41 | EKG ---
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
--- NOTE | 2018-10-24 14:38 | PDOC1 ---
History and Physical Date of Admission Date of Admission 10/24/2018 Identification/Chief Complaint Chief Complaint I have palpitations Source Source: Chart review, Patient History of Present Illness History of Present Illness Patient is a 48 year old female with past medical history of ferquent PVC, she was evaluated early in the ER on Wednesday10/24/2018. Workup was negative and an appointment was made for her to visit Dr. was not very today in the morning. Unfortunately during the evening the patient describes chest discomfort that she relates more of a tightness over the precordial area lasting less than 20 minutes no radiation to the jaw the arm she did feel somewhat nauseous with the event reason why she decided to come back to the emergency department. Not no sensation of impending doom but the patient does seem to be quite anxious about her symptoms. There was also reported dyspnea even at rest due to the symptoms. No paroxysmal nocturnal dyspnea no peripheral edema has been reported. We were asked to admit the patient for further evaluation and treatment Past Medical History Cardiovascular: No pertinent hx CENTRAL NERVOUS SYSTEM: Other GI: No pertinent hx Heme/Onc: No pertinent hx Hepatobiliary: No pertinent hx Psych: Anxiety, Depression Endocrine: Other Past Surgical History Past Surgical History: No pertinent history Family History Family History: Diabetes, Hypertension, Stroke Social History Smoke: No ALCOHOL: none Drugs: None Current Medications Current Medications Current Medications Medications (Trade) Dose Ordered Sig/Tomas Start Time Stop Time Status Last Admin Dose Admin Aspirin (Children'S Aspirin) 324 mg 1X ONCE 10/24/18 05:30 10/24/18 05:31 DC 10/24/18 06:03 243 MG Magnesium Sulfate 50 ml @ 25 mls/hr 1X ONCE 10/24/18 06:15 10/24/18 08:14 DC 10/24/18 07:26 25 MLS/HR Metoprolol Tartrate (Lopressor) 25 mg BID 10/24/18 21:00 Allergies Allergies Allergies Coded Allergies Type Severity Reaction Last Updated Verified diphenhydramine Allergy Intermediate 11/10/17 Yes codeine Adverse Reaction Intermediate Nausea 11/10/17 Yes ROS Review of System CONSTITUTIONAL: No fever or chills EYES: No recent changes SKIN: No rash or itching CARDIOVASCULAR: No chest pain, syncope, palpitations, or edema RESPIRATORY: No SOB or cough GASTROINTESTINAL: No nausea, vomiting or abdominal pain NEUROLOGICAL: No headaches or weakness ENDOCRINE: No cold or heat intolerance GENITOURINARY: No urgency or frequency of urination MUSCULOSKELETAL: No back pain or joint pain LYMPHATICS: No enlarged lymph nodes PSYCHIATRIC: No anxiety or depression Physical Exam Physical Exam GEN.: No apparent distress. Alert and oriented. HEENT: Head is normocephalic, atraumatic NECK: Supple. LUNGS: Clear to auscultation. HEART: RRR, S1, S2 present. Peripheral pulses intact ABDOMEN: Soft, nontender. Positive bowel sounds. EXTREMITIES: Without any cyanosis. NEUROLOGIC: Normal speech, normal tone PSYCHIATRIC: Normal affect, normal mood. SKIN: No ulcerations Vitals Vitals Vital Signs Date Time Temp Pulse Resp B/P (MAP) Pulse Ox O2 Delivery O2 Flow Rate FiO2 10/24/18 11:00 98.4 83 102/64 (77) 97 Room Air 98.4 10/24/18 07:42 16 Labs Labs Laboratory Tests Test 10/24/18 05:25 10/24/18 06:30 10/24/18 08:15 10/24/18 11:00 White Blood Count 9.9 x10^3/uL (4.0-11.0) Red Blood Count 4.92 x10^6/uL (3.50-5.40) Hemoglobin 13.6 g/dL (12.0-15.5) Hematocrit 41.8 % (36.0-47.0) Mean Corpuscular Volume 85 fL (79-100) Mean Corpuscular Hemoglobin 28 pg (25-35) Mean Corpuscular Hemoglobin Concent 33 g/dL (31-37) Red Cell Distribution Width 14.7 % (11.5-14.5) Platelet Count 383 x10^3/uL (140-400) Neutrophils (%) (Auto) 66 % (31-73) Lymphocytes (%) (Auto) 25 % (24-48) Monocytes (%) (Auto) 7 % (0-9) Eosinophils (%) (Auto) 2 % (0-3) Basophils (%) (Auto) 1 % (0-3) Neutrophils # (Auto) 6.5 x10^3uL (1.8-7.7) Lymphocytes # (Auto) 2.5 x10^3/uL (1.0-4.8) Monocytes # (Auto) 0.6 x10^3/uL (0.0-1.1) Eosinophils # (Auto) 0.2 x10^3/uL (0.0-0.7) Basophils # (Auto) 0.1 x10^3/uL (0.0-0.2) Maternal Serum HCG Beta Subunit 1 mIU/mL (0-5) Sodium Level 140 mmol/L (136-145) Potassium Level 3.9 mmol/L (3.5-5.1) Chloride Level 101 mmol/L (98-107) Carbon Dioxide Level 26 mmol/L (21-32) Anion Gap 13 (6-14) Blood Urea Nitrogen 15 mg/dL (7-20) Creatinine 0.7 mg/dL (0.6-1.0) Estimated GFR (Cockcroft-Gault) 90.1 BUN/Creatinine Ratio 21 (6-20) Glucose Level 120 mg/dL (70-99) Calcium Level 8.8 mg/dL (8.5-10.1) Magnesium Level 1.9 mg/dL (1.8-2.4) Total Bilirubin 0.3 mg/dL (0.2-1.0) Aspartate Amino Transf (AST/SGOT) 16 U/L (15-37) Alanine Aminotransferase (ALT/SGPT) 25 U/L (14-59) Alkaline Phosphatase 55 U/L (46-116) Troponin I Quantitative < 0.017 ng/mL (0.000-0.055) < 0.017 ng/mL (0.000-0.055) < 0.017 ng/mL (0.000-0.055) Total Protein 7.4 g/dL (6.4-8.2) Albumin 3.4 g/dL (3.4-5.0) Albumin/Globulin Ratio 0.9 (1.0-1.7) Triglycerides Level 146 mg/dL (0-150) Cholesterol Level 216 mg/dL (0-200) LDL Cholesterol, Calculated 127 mg/dL (0-100) VLDL Cholesterol, Calculated 29 mg/dL (0-40) Non-HDL Cholesterol Calculated 156 mg/dL (0-129) HDL Cholesterol 60 mg/dL (40-60) Cholesterol/HDL Ratio 3.6 Nasal Screen MRSA (PCR) Positive (Negative) Laboratory Tests Test 10/24/18 05:25 10/24/18 06:30 10/24/18 08:15 10/24/18 11:00 White Blood Count 9.9 x10^3/uL (4.0-11.0) Red Blood Count 4.92 x10^6/uL (3.50-5.40) Hemoglobin 13.6 g/dL (12.0-15.5) Hematocrit 41.8 % (36.0-47.0) Mean Corpuscular Volume 85 fL (79-100) Mean Corpuscular Hemoglobin 28 pg (25-35) Mean Corpuscular Hemoglobin Concent 33 g/dL (31-37) Red Cell Distribution Width 14.7 % (11.5-14.5) Platelet Count 383 x10^3/uL (140-400) Neutrophils (%) (Auto) 66 % (31-73) Lymphocytes (%) (Auto) 25 % (24-48) Monocytes (%) (Auto) 7 % (0-9) Eosinophils (%) (Auto) 2 % (0-3) Basophils (%) (Auto) 1 % (0-3) Neutrophils # (Auto) 6.5 x10^3uL (1.8-7.7) Lymphocytes # (Auto) 2.5 x10^3/uL (1.0-4.8) Monocytes # (Auto) 0.6 x10^3/uL (0.0-1.1) Eosinophils # (Auto) 0.2 x10^3/uL (0.0-0.7) Basophils # (Auto) 0.1 x10^3/uL (0.0-0.2) Maternal Serum HCG Beta Subunit 1 mIU/mL (0-5) Sodium Level 140 mmol/L (136-145) Potassium Level 3.9 mmol/L (3.5-5.1) Chloride Level 101 mmol/L (98-107) Carbon Dioxide Level 26 mmol/L (21-32) Anion Gap 13 (6-14) Blood Urea Nitrogen 15 mg/dL (7-20) Creatinine 0.7 mg/dL (0.6-1.0) Estimated GFR (Cockcroft-Gault) 90.1 BUN/Creatinine Ratio 21 (6-20) Glucose Level 120 mg/dL (70-99) Calcium Level 8.8 mg/dL (8.5-10.1) Magnesium Level 1.9 mg/dL (1.8-2.4) Total Bilirubin 0.3 mg/dL (0.2-1.0) Aspartate Amino Transf (AST/SGOT) 16 U/L (15-37) Alanine Aminotransferase (ALT/SGPT) 25 U/L (14-59) Alkaline Phosphatase 55 U/L (46-116) Troponin I Quantitative < 0.017 ng/mL (0.000-0.055) < 0.017 ng/mL (0.000-0.055) < 0.017 ng/mL (0.000-0.055) Total Protein 7.4 g/dL (6.4-8.2) Albumin 3.4 g/dL (3.4-5.0) Albumin/Globulin Ratio 0.9 (1.0-1.7) Triglycerides Level 146 mg/dL (0-150) Cholesterol Level 216 mg/dL (0-200) LDL Cholesterol, Calculated 127 mg/dL (0-100) VLDL Cholesterol, Calculated 29 mg/dL (0-40) Non-HDL Cholesterol Calculated 156 mg/dL (0-129) HDL Cholesterol 60 mg/dL (40-60) Cholesterol/HDL Ratio 3.6 Nasal Screen MRSA (PCR) Positive (Negative) VTE Prophylaxis Ordered VTE Prophylaxis Devices: No VTE Pharmacological Prophylaxi: Yes Assessment/Plan Assessment/Plan Frequent PVCs chest discomfort secondary to the above, doubt ischemic in nature morbid obesity with BMI of 45 DELANO? hypothyroidism dyslipidemia with pure hypercholesterolemia Plan: cardiology consultation ACS ruled out with serial troponin may need a beta jeff and a statin drug will follow recommendations from institutional nutrition consultant further recommendations based on clinical course. reassess in the am TERRY SAAVEDRA MD Oct 24, 2018 14:38
[2018-10-24 15:00] VITALS: BP 114/72
--- NOTE | 2018-10-24 15:44 | NUR ---
SS following for discharge planning. SS reviewed pt chart. Pt is from home with spouse and is currently on room air. No discharge needs noted at this time. SS will continue to follow for pending discharge needs
[2018-10-24] MEDS ORDERED: METO25TA4 PO (17:07)
--- NOTE | 2018-10-24 17:12 | PDOC3 ---
Discharge Summary Visit Information Date of Admission: Oct 24, 2018 Date of Discharge: Oct 24, 2018 Admitting Diagnosis Comment: PVC Final Diagnosis Symptomatic PVC Brief Hospital Course Allergies Allergies Coded Allergies Type Severity Reaction Last Updated Verified diphenhydramine Allergy Intermediate 11/10/17 Yes codeine Adverse Reaction Intermediate Nausea 11/10/17 Yes Vital Signs Vital Signs Date Time Temp Pulse Resp B/P (MAP) Pulse Ox O2 Delivery O2 Flow Rate FiO2 10/24/18 15:00 98.4 83 114/72 (86) 97 Room Air 98.4 10/24/18 07:42 16 Lab Results Laboratory Tests Test 10/24/18 05:25 10/24/18 06:30 10/24/18 08:15 10/24/18 11:00 White Blood Count 9.9 x10^3/uL (4.0-11.0) Red Blood Count 4.92 x10^6/uL (3.50-5.40) Hemoglobin 13.6 g/dL (12.0-15.5) Hematocrit 41.8 % (36.0-47.0) Mean Corpuscular Volume 85 fL (79-100) Mean Corpuscular Hemoglobin 28 pg (25-35) Mean Corpuscular Hemoglobin Concent 33 g/dL (31-37) Red Cell Distribution Width 14.7 % (11.5-14.5) Platelet Count 383 x10^3/uL (140-400) Neutrophils (%) (Auto) 66 % (31-73) Lymphocytes (%) (Auto) 25 % (24-48) Monocytes (%) (Auto) 7 % (0-9) Eosinophils (%) (Auto) 2 % (0-3) Basophils (%) (Auto) 1 % (0-3) Neutrophils # (Auto) 6.5 x10^3uL (1.8-7.7) Lymphocytes # (Auto) 2.5 x10^3/uL (1.0-4.8) Monocytes # (Auto) 0.6 x10^3/uL (0.0-1.1) Eosinophils # (Auto) 0.2 x10^3/uL (0.0-0.7) Basophils # (Auto) 0.1 x10^3/uL (0.0-0.2) Maternal Serum HCG Beta Subunit 1 mIU/mL (0-5) Sodium Level 140 mmol/L (136-145) Potassium Level 3.9 mmol/L (3.5-5.1) Chloride Level 101 mmol/L (98-107) Carbon Dioxide Level 26 mmol/L (21-32) Anion Gap 13 (6-14) Blood Urea Nitrogen 15 mg/dL (7-20) Creatinine 0.7 mg/dL (0.6-1.0) Estimated GFR (Cockcroft-Gault) 90.1 BUN/Creatinine Ratio 21 (6-20) Glucose Level 120 mg/dL (70-99) Calcium Level 8.8 mg/dL (8.5-10.1) Magnesium Level 1.9 mg/dL (1.8-2.4) Total Bilirubin 0.3 mg/dL (0.2-1.0) Aspartate Amino Transf (AST/SGOT) 16 U/L (15-37) Alanine Aminotransferase (ALT/SGPT) 25 U/L (14-59) Alkaline Phosphatase 55 U/L (46-116) Troponin I Quantitative < 0.017 ng/mL (0.000-0.055) < 0.017 ng/mL (0.000-0.055) < 0.017 ng/mL (0.000-0.055) Total Protein 7.4 g/dL (6.4-8.2) Albumin 3.4 g/dL (3.4-5.0) Albumin/Globulin Ratio 0.9 (1.0-1.7) Triglycerides Level 146 mg/dL (0-150) Cholesterol Level 216 mg/dL (0-200) LDL Cholesterol, Calculated 127 mg/dL (0-100) VLDL Cholesterol, Calculated 29 mg/dL (0-40) Non-HDL Cholesterol Calculated 156 mg/dL (0-129) HDL Cholesterol 60 mg/dL (40-60) Cholesterol/HDL Ratio 3.6 Nasal Screen MRSA (PCR) Positive (Negative) Laboratory Tests Test 10/24/18 05:25 10/24/18 06:30 10/24/18 08:15 10/24/18 11:00 White Blood Count 9.9 x10^3/uL (4.0-11.0) Red Blood Count 4.92 x10^6/uL (3.50-5.40) Hemoglobin 13.6 g/dL (12.0-15.5) Hematocrit 41.8 % (36.0-47.0) Mean Corpuscular Volume 85 fL (79-100) Mean Corpuscular Hemoglobin 28 pg (25-35) Mean Corpuscular Hemoglobin Concent 33 g/dL (31-37) Red Cell Distribution Width 14.7 % (11.5-14.5) Platelet Count 383 x10^3/uL (140-400) Neutrophils (%) (Auto) 66 % (31-73) Lymphocytes (%) (Auto) 25 % (24-48) Monocytes (%) (Auto) 7 % (0-9) Eosinophils (%) (Auto) 2 % (0-3) Basophils (%) (Auto) 1 % (0-3) Neutrophils # (Auto) 6.5 x10^3uL (1.8-7.7) Lymphocytes # (Auto) 2.5 x10^3/uL (1.0-4.8) Monocytes # (Auto) 0.6 x10^3/uL (0.0-1.1) Eosinophils # (Auto) 0.2 x10^3/uL (0.0-0.7) Basophils # (Auto) 0.1 x10^3/uL (0.0-0.2) Maternal Serum HCG Beta Subunit 1 mIU/mL (0-5) Sodium Level 140 mmol/L (136-145) Potassium Level 3.9 mmol/L (3.5-5.1) Chloride Level 101 mmol/L (98-107) Carbon Dioxide Level 26 mmol/L (21-32) Anion Gap 13 (6-14) Blood Urea Nitrogen 15 mg/dL (7-20) Creatinine 0.7 mg/dL (0.6-1.0) Estimated GFR (Cockcroft-Gault) 90.1 BUN/Creatinine Ratio 21 (6-20) Glucose Level 120 mg/dL (70-99) Calcium Level 8.8 mg/dL (8.5-10.1) Magnesium Level 1.9 mg/dL (1.8-2.4) Total Bilirubin 0.3 mg/dL (0.2-1.0) Aspartate Amino Transf (AST/SGOT) 16 U/L (15-37) Alanine Aminotransferase (ALT/SGPT) 25 U/L (14-59) Alkaline Phosphatase 55 U/L (46-116) Troponin I Quantitative < 0.017 ng/mL (0.000-0.055) < 0.017 ng/mL (0.000-0.055) < 0.017 ng/mL (0.000-0.055) Total Protein 7.4 g/dL (6.4-8.2) Albumin 3.4 g/dL (3.4-5.0) Albumin/Globulin Ratio 0.9 (1.0-1.7) Triglycerides Level 146 mg/dL (0-150) Cholesterol Level 216 mg/dL (0-200) LDL Cholesterol, Calculated 127 mg/dL (0-100) VLDL Cholesterol, Calculated 29 mg/dL (0-40) Non-HDL Cholesterol Calculated 156 mg/dL (0-129) HDL Cholesterol 60 mg/dL (40-60) Cholesterol/HDL Ratio 3.6 Nasal Screen MRSA (PCR) Positive (Negative) Brief Hospital Course Ms. Burks is a 48 old female who presented with symptomatic palpitiations she was assessed by cardiology and deemedd appropirte for discharge after startin andrei on beta jeff. Patient is in good spirits to be discharged home. She will follow up with cardiology and primary care in one week. CVS s1 s2 with some PVC no murmurs lungs clear to auscultation Discharge Information Disposition/Orders: D/C to Home Scheduled Metoprolol Tartrate (Metoprolol Tartrate) 25 Mg Tablet, 25 MG PO BID for FOR HYPERTENSION, #60 Ref 0 (Reported) Entered as Reported by: GET GREEN on 10/24/181706 Last Action: New Order on 10/24/181706 by GET GREEN Paroxetine Hcl (Paroxetine Hcl) 30 Mg Tablet, 30 MG PO DAILY, (Reported) Entered as Reported by: EMANUEL CASE on 02/02/17821 Scheduled PRN Alprazolam (Xanax) 0.5 Mg Tablet, 0.5 MG PO PRN Q6HRS PRN for ANXIETY / AGITATION, Ref 0 (Reported) Entered as Reported by: EMANUEL CASE on 02/02/17822 TERRY SAAVEDRA MD Oct 24, 2018 17:11
[2018-10-24] MEDS ORDERED: METOPROLOL TART IMMED RELEASE 25 MG TABLET. PO SCH (21:00)
== END 2018-10-24 18:39 | disposition home or self-care (01) ==
LOC: ER 04:54 → 1 WEST ICU 05:20
PROVIDERS: ADMIT Internal Medicine; ATTEND Internal Medicine
DX: I49.3 Ventricular premature depolarization (principal); F41.9 Anxiety disorder, unspecified; F32.9 Major depressive disorder, single episode, unspecified; E78.5 Hyperlipidemia, unspecified; E03.9 Hypothyroidism, unspecified; Z68.41 Body mass index [BMI] 40.0-44.9, adult; Z79.899 Other long term (current) drug therapy; Z82.3 Family history of stroke; Z82.49 Family history of ischemic heart disease and other diseases of the circulatory system; Z83.3 Family history of diabetes mellitus
CPT/HCPCS: 36415; 80053; 80061; 83735; 84484; 84702; 85025; 87641; 93005; 93306; 96365; 96366; 99284; G0378; J3475; G0379

== ENCOUNTER → 2018-11-16 | Outpatient (CLI) | payer OTHER ==
[2018-10-24 15:00] VITALS: BP 114/72
[~2018-11-16] MED LIST changes: +METO25TA4 PO
--- NOTE | 2018-11-16 10:46 | RAD ---
Indication: Left breast lesion seen on previous ultrasound. Six-month follow-up recommended at the time. Patient did not follow-up. TECHNIQUE: Limited left breast ultrasound for follow-up of previously seen left breast lesion. COMPARISON: 12/18/2016 ultrasound. FINDINGS: There is an oval-shaped hypoechoic nonvascular lesion at 8:30-9:00 position approximately 4 cm from the nipple measuring 1.1 x 0.5 x 0.9 cm, previously 1.0 x 0.8 x 0.5 cm. No new left breast lesion seen. IMPRESSION: Stable left breast lesion dating back almost 2 years most likely benign lipoma. BI-RADS 2: Benign findings. Continued annual screening. Electronically signed by: George Briggs DO (11/16/2018 10:44 AM) [facility]
--- NOTE | 2018-11-16 13:25 | RAD ---
DATE: 11/16/2018 EXAM: MAMMO MICHEL SAHNI HISTORY: Patient had diagnostic mammogram on 12/18/2016 for which a follow-up mammogram and left breast ultrasound was recommended. Patient did not get the follow-up exam. Patient presents today for above-mentioned follow-up from more than a year ago. COMPARISON: There is mammogram from 2017 This study was interpreted with the benefit of Computerized Aided Detection (CAD). FINDINGS: Breast Density: SCATTERED The breast parenchyma shows scattered fibroglandular densities. Breast parenchyma level B. The skin and nipples are within normal limits. No suspicious calcifications, spiculated mass or area of architectural distortion. IMPRESSION: No mammographic abnormality seen. Stable mammogram. Please see report on ultrasound done on the left breast from the same day. BI-RADS CATEGORY: 2 BENIGN FINDING(S) RECOMMENDED FOLLOW-UP: 12M 12 MONTH FOLLOW-UP PQRS compliance statement: Patient information was entered into a reminder system with a target due date for the next mammogram. Mammography is a sensitive method for finding small breast cancers, but it does not detect them all and is not a substitute for careful clinical examination. A negative mammogram does not negate a clinically suspicious finding and should not result in delay in biopsying a clinically suspicious abnormality. "Our facility is accredited by the [employer] Mammography Program."
== END | disposition home or self-care (01) ==
LOC: MAMMO 09:25
PROVIDERS: ATTEND Nurse Practitioner
DX: N64.89 Other specified disorders of breast (principal)
CPT/HCPCS: 76641; 77066; G0279; 77062

== ENCOUNTER → 2019-09-27 | Outpatient (CLI) | payer OTHER ==
[2019-09-27 16:52] LABS: ALBUMIN 3.7 g/dL (3.4-5.0); ALBUMIN/GLOBULIN RATIO 0.9 (1.0-1.7); CALCIUM 9.3 mg/dL (8.5-10.1); CREATININE 0.8 mg/dL (0.6-1.0); GFR 76.9; POTASSIUM 4.1 mmol/L (3.5-5.1); TOTAL BILIRUBIN 0.5 mg/dL (0.2-1.0)
[2019-09-27 16:53] LABS: CHOLESTEROL/HDL RATIO 3.4
[2019-09-27 17:05] LABS: THYROID STIM HORMONE (TSH) 3.406 uIU/mL (0.358-3.74)
[2019-09-28 04:08] LABS: HEMOGLOBIN A1C 5.9 % (4.8-5.6)
== END | disposition home or self-care (01) ==
LOC: LAB 15:50
PROVIDERS: ATTEND Family Medicine
DX: Z13.220 Encounter for screening for lipoid disorders (principal); R73.03 Prediabetes; E03.9 Hypothyroidism, unspecified
CPT/HCPCS: 36415; 80053; 80061; 83036; 84439; 84443

== ENCOUNTER → 2019-09-27 | Outpatient (CLI) | payer OTHER ==
--- NOTE | 2019-09-27 16:43 | RAD ---
MRI Lumbar Spine without contrast History: Low back pain, worsening bilateral leg radiculopathy right greater than left Technique: Multiplanar, multi sequential noncontrast MR imaging was performed of the lumbar spine. Comparison: November 09, 2016 Findings: Lumbar vertebral body stature is maintained. There is again fairly advanced degenerative disc disease at L5-S1 and moderate degenerative disc disease at L3-4 which is somewhat greater. There is again mild disc desiccation at L4-5. There are again posterior annular tears L3-4 and L5-S1. There is new L5-S1 endplate edema, also mild L3-4 endplate edema greater. There is no fluid in the intervertebral disc spaces. Conus terminates near the inferior aspect of L2. There is again focus of signal change of the anterior T11 vertebral body again hyperintense on the T2 and STIR sequences, measures about 0.8 cm cc by about 0.7 cm AP versus previously about 0.6 cm cc by 0.4 cm AP. There is again cystic focus of the right adnexa about 2.1 cm in size which is similar. L1-L2: Spinal canal and neural foramina are adequate. This level was not included on the axial images. L2-L3: Neural foramina and spinal canal are adequate. L3-L4: There is again very minimal disc osteophyte complex. There is mild buckling of the ligamentum flavum and facet degenerative change. Spinal canal is adequate. Neural foramina are not significantly narrowed. L4-L5: There is again mild buckling of the ligamentum flavum and facet degenerative change. Spinal canal is adequate. Neural foramina are not significantly narrowed, light contact of the posterior surface exiting right L4 nerve root by facet. L5-S1: There is very minimal disc osteophyte complex, no displacement of the descending S1 nerve roots or spinal stenosis. Neural foramina are overall adequate. Disc osteophyte complex is again near the lateral aspects of the extraforaminal L5 nerve roots bilaterally without significant displacement. Impression: 1. There is degenerative disc disease greatest at L5-S1 and to lesser degree at L3-4, increased endplate edema greatest at L5-S1 likely reactive/degenerative in etiology, no fluid in the intervertebral disc spaces. There is mild spondylosis. There is no new significant lumbar spinal stenosis or neural foramina compromise. 2. There is again cystic lesion of the visualized right adnexa, similar in size. 3. Small focus of signal abnormality of the T11 vertebral body measures somewhat larger, again difficult to further accurately characterize given small size. Unless there is new suspicion or history of malignancy, it is still possible this represents a benign etiology such as an atypical hemangioma especially given only minimal exchange administrator 3 years, although otherwise difficult to characterize etiology. Electronically signed by: Trenton Del Rosario MD (09/27/2019 4:40 PM) [id number]
== END | disposition home or self-care (01) ==
LOC: MRI 15:05
PROVIDERS: ATTEND Family Medicine
DX: M51.37 Other intervertebral disc degeneration, lumbosacral region (principal); M47.816 Spondylosis without myelopathy or radiculopathy, lumbar region; M25.78 Osteophyte, vertebrae
CPT/HCPCS: 72148

== ENCOUNTER → 2019-10-16 | Outpatient (CLI) | payer OTHER ==
[~2019-10-16] MED LIST changes: +CHOL200078 PO; +CYCL10TA2 PO; +IOHEXOL 180 MG/ML 10 ML VIAL. ONE; +MULT-505 PO; +OMEG-32 PO; +TURM500C4 PO; +[UNRECOGNIZED DRUG - CODE] PO; +methylPREDNISolone ACETATE 40 MG/ML VIAL. ONE; +methylPREDNISolone ACETATE 80 MG/ML VIAL. ONE
--- NOTE | 2019-10-16 11:48 | PAIN ---
DATE OF SERVICE: 10/16/2019 PROGRESS NOTE FOR PAIN CLINIC DIAGNOSES: Lumbar radiculopathy with lumbar degenerative disk disease. HISTORY OF PRESENT ILLNESS: The patient is a 49-year-old female who returns for followup status post previous lumbar epidural steroid injections, was last seen 05/2017. The patient did very well with near 100% improvement with her low back and lower extremity pain. The patient reports the pain has returned now over the past year or so very gradually. She has been taking some Flexeril, which does decrease the pain, also some [id number] Motrin and Advil, which has helped as well. The patient reports the pain across the low back now bilaterally into the right lower extremity, posterior gluteus, posterior thigh, posterior calf and right foot, worse with walking, standing, changing positions. The patient reports it is aching and sharp in the right leg and foot dull in the low back, shooting in the leg, occasionally in the top of the right toes as a burning sensation as well. The patient reports it is worse with walking, standing, changing positions. No deficits, but still significant pain with ambulation, standing for longer than 15-20 minutes, better with sitting down or lying down, but does awaken from sleep about every 5 hours over the past several months. The patient reports the pain is 8 on a scale of 10 at its worst over the past week, 5 on average 2 at its least and is a 5 today. The patient reports no new motor or sensory deficits, no new bowel or bladder incontinence or other complaints. She did have a new MRI scan compared to scan from 2017 showing degenerative disk disease, greatest at L5-S1 and lesser degree at L3-L4 with L5-S1 showing disk osteophyte complex near the lateral aspect of the extraforaminal L5 nerve roots bilaterally, but without significant displacement. PHYSICAL EXAMINATION: VITAL SIGNS: The patient's blood pressure 137/87, pulse 101, respirations 20, temperature 98.3 degrees Fahrenheit, weight is 242 pounds. GENERAL: The patient is awake, alert, oriented, appropriate, very pleasant demeanor. HEENT: Head shows normocephalic, atraumatic. Extraocular movements are intact and symmetrical. Oral cavity shows mucous membranes moist and pink. Dentition is intact. NECK: Shows anterior throat supple without palpable lymphadenopathy noted. Swallow reflex symmetrical. CHEST: Shows normal on inspection. Breath sounds are clear bilaterally. HEART: Shows S1, S2 clear. No murmurs auscultated. ABDOMEN: Soft, nontender, nondistended. No palpable organomegaly is noted. No rebound or guarding demonstrated. BACK: Shows spine grossly in the midline. Slight exaggeration of thoracic kyphosis and minor flattening of lumbar lordotic curvature. Lumbar paraspinous muscle shows symmetrical on inspection, with palpation shows some moderate tenderness diffusely bilaterally going diffusely without significant radiation. The patient has good rotational motion of lumbar spine, both laterally as well as extension and flexion without significant pain reported. EXTREMITIES: The patient's lower extremities show deep tendon reflexes at 2+ in the patellar, 1+ tendo-calcaneus tendons. Motor exam is strong with 5/5 dorsiflexion, extension, quadriceps and hamstring flexion symmetrical. Peripheral pulses are 1+. No peripheral edema is noted. Options were discussed with the patient. The patient's old chart was reviewed as her current medication regimen updated. Current review of systems updated today as well. We will proceed with a lumbar epidural steroid injection as a first in this series today with fluoroscopic guidance. Risks were again discussed including, but not limited to bleeding, infection, possibility of epidural hematoma, subsequent neurological compromise, dural puncture, headaches, spinal cord and/or nerve damage, side effects of steroid medication and poor results regarding pain control. The patient understands and wished to proceed. The patient will return to clinic in approximately 2 weeks for followup. She was counseled on return appointment, activity level and side effects to be aware of. DIAGNOSIS: Lumbar radiculopathy with lumbar degenerative disk disease. PROCEDURE: Lumbar epidural steroid injection, translaminar approach L5-S1 level using C-arm fluoroscopic guidance under sterile prep and drape using local anesthetic. MEDICATION INJECTED: A total of 120 mg Depo-Medrol plus 10 mL of preservative-free normal saline and 2 mL of contrast. CONDITION AT DISCHARGE: Stable. The patient tolerated the procedure well, had no complications. SAPNA TELLEZ MD DR: BENY/ellen JOB#: [id number] / [id number]
== END ==
LOC: PNCL 09:22
PROVIDERS: ATTEND Anesthesiology
DX: M51.16 Intervertebral disc disorders with radiculopathy, lumbar region (principal)
CPT/HCPCS: 62323; J1030; J1040; Q9965

== ENCOUNTER → 2020-01-08 | Outpatient (CLI) | payer OTHER ==
[~2020-01-08] MED LIST changes: -IOHEXOL 180 MG/ML 10 ML VIAL. ONE; -methylPREDNISolone ACETATE 40 MG/ML VIAL. ONE; -methylPREDNISolone ACETATE 80 MG/ML VIAL. ONE
--- NOTE | 2020-01-09 15:25 | RAD ---
EXAM: BILATERAL DIGITAL 3D SCREENING MAMMOGRAPHY. HISTORY: Routine mammographic screening. TECHNIQUE: Bilateral digital 3D and tomographic images were obtained in CC and MLO projections. Computer-aided detection was applied. COMPARISON: 12/09/2016, 11/16/2018. COMPOSITION: B. There are scattered areas of fibroglandular density. FINDINGS: There are no suspicious masses, microcalcifications or architectural distortion. The parenchymal pattern is stable. A few coarse calcifications are benign. Scattered small nodular parenchyma islands are stable. BI-RADS CATEGORY 2: Benign. RECOMMENDATION: 1. Routine screening mammography in one year. If mammography demonstrates dense breast tissue (heterogenously dense or extremely dense, category C or D), which could hide abnormalities, and if other risk factors for breast cancer have been identified, supplemental screening tests that may be suggested by the ordering physician may be of benefit. Dense breast tissue, in and of itself, is a relatively common condition. Therefore, this information is not provided to cause undue concern, but rather to raise awareness and to promote discussion with the referring physician regarding the presence of other risk factors, in addition to dense breast tissue. The results of this mammography examination is provided to the patient and referring physician. The patient should contact their referring physician if any questions or concerns exist regarding this report. PQRS compliance statement - Patient information was entered into a reminder system with a target due date for the next mammogram. "Our facility is accredited by the [employer] Mammography [employer]." Electronically signed by: Veronica Luque MD (01/09/2020 3:22 PM) [id number]
== END | disposition home or self-care (01) ==
LOC: MAMMO 15:27
PROVIDERS: ATTEND Family Medicine
DX: Z12.31 Encounter for screening mammogram for malignant neoplasm of breast (principal); N64.89 Other specified disorders of breast
CPT/HCPCS: 77063; 77067

== ENCOUNTER → 2020-04-18 | Outpatient (CLI) | payer OTHER ==
[~2020-04-18] MED LIST changes: +IOHEXOL 180 MG/ML 10 ML VIAL. ONE; +MULT-445 PO; -MULT1TAB52 PO; +methylPREDNISolone ACETATE 40 MG/ML VIAL. ONE; +methylPREDNISolone ACETATE 80 MG/ML VIAL. ONE
--- NOTE | 2020-04-18 09:05 | PDOC ---
Progress Note - Pain Clinic Date of Service: DOS: DATE: 04/18/20 TIME: 09:01 Diagnosis: Dx: Lumbar radiculopathy with lumbar degenerative disc disease History or Present Illness: HPI: 50-year-old female returns follow-up status post lumbar epidural steroid injections x2 most recently seen October 16, 2019. Patient was 100% improvement for the first month and the pain is been gradually returning in the low back and right lower extremity as was previously. Patient was in the low back significantly radiating to the right lower extremity posterior gluteus posterior thigh posterior calf into the right foot which is mainly aching and dull at times in the back stabbing at times in the right leg as well as traveling radiating worse with walking standing change positions better with sitting or laying down initially she was much better with doing work activities distance walking house like to be sleeping better now is beginning to awaken her from sleep at night. Reports her pain is a 9- 8 on a scale of 10 is worse of the past week 5 on average to its least and is a 2 today patient reports no new motor or sensory deficits no new bowel or bladder incontinence or other complaints. Physical Exam: VS: Pressure is 152/106 pulse 88 respirations 18 temperature 98.2 F height is 5 foot 1 inch weight is 234 pounds PE: PHYSICAL EXAMINATION: GENERAL: The patient is awake, alert, oriented, appropriate, very pleasant demeanor HEENT: Shows normocephalic, atraumatic. Extraocular movements are intact and symmetrical. Oral cavity: Mucous membranes moist and pink. Dentition is intact. NECK: Shows anterior throat supple without palpable lymphadenopathy noted. Swallow reflex symmetrical. CHEST: Shows normal on inspection. Breath sounds are clear bilaterally, no rales rhonchi or wheezes auscultated. HEART: Shows S1, S2 clear. No murmurs auscultated. ABDOMEN: Soft, nontender, nondistended. No palpable organomegaly is noted. No rebound or guarding demonstrated. BACK: Shows spine grossly in the midline. Normal-appearing cervical lordotic curvature. There is slightly increased thoracic kyphosis, some minor flattening of the lumbar lordotic curvature. Lumbar paraspinous muscles show symmetrical on inspection, on palpation shows some moderate tenderness diffusely throughout the upper, middle and lower distribution of the paraspinous muscles bilaterally and also into the lower thoracic paraspinous musculature, firm and tender, but without specific trigger points, without radiation of pain. The patient has good rotational motion of the lumbar spine, both laterally as well as extension and flexion without significant difficulty. No tenderness over the spinous processes, sacrum or sacroiliac regions. EXTREMITIES: Lower extremities show deep tendon reflexes 2+ in the patellar and tendo calcaneus tendons. Motor exam is 5 on a scale of 5 with right dorsiflexion, extension, quadriceps and hamstring flexion and 5/5 on the left. Peripheral pulses are 1+ posterior tibial. No peripheral edema is noted bila terally. Lower extremities are warm and dry to touch, equal in color and appearance. SKIN: Shows warm and dry, good turgor. No edema. No sores, rashes or bruising throughout. Procedure: Procedure: Options were discussed with the patient. Patient chart was reviewed as her current medication regimen updated current review of systems updated as well. We will proceed with a first in the series lumbar epidural steroid traction today with fluoroscopic guidance risks again discussed including but not limited to bleeding infection possibility of epidural hematoma subsequent neurological compromise dural puncture headache spinal cord and or nerve damage side effects of steroid medication and poor results regarding pain control. Patient understands wished to proceed. Patient return to clinic in approximately 2 weeks for follow-up was counseled as return appointment activity level and side effects to be aware of. Medication Injected: Med Injected: Procedure is lumbar epidural steroid injection under local anesthetic using sterile prep and drape at the L5-S1 level using C-arm fluoroscopic guidance in both AP and lateral views medications injected is 120 mg Depo-Medrol + 10 mL preservative-free normal saline and 2 mL Isovue for contrast- condition at discharge is stable patient tolerated procedure well had no complications. Condition at Discharge: Condition at Discharge: Condition at discharge is stable, patient tolerated the procedure well had no complications. SAPNA TELLEZ MD Apr 18, 2020 09:05
== END | disposition home or self-care (01) ==
LOC: PNCL 08:19
PROVIDERS: ATTEND Anesthesiology
DX: M51.16 Intervertebral disc disorders with radiculopathy, lumbar region (principal); Z88.5 Allergy status to narcotic agent; Z79.899 Other long term (current) drug therapy; Z98.890 Other specified postprocedural states
CPT/HCPCS: 62323; J1030; J1040; Q9965

== ENCOUNTER → 2020-06-24 | Outpatient (CLI) | payer OTHER ==
--- NOTE | 2020-06-24 08:31 | PDOC ---
Progress Note - Pain Clinic Date of Service: DOS: DATE: 06/24/20 TIME: 08:27 Diagnosis: Dx: Lumbar radiculopathy with lumbar degenerative disc disease Bilateral sacroiliitis History or Present Illness: HPI: 50-year-old female returns follow-up status post lumbar epidural steroid injections x2 most recently April 18, 2020 patient reports he did very well with this first for the first month or so the pain is beginning to decrease significantly in the low back and the bilateral lower extremities patient reports over the past few weeks though she is been doing some yard work been more active and has exacerbated some pain in her low back specially in the right leg with weakness in the bilateral hamstrings more on the right than the left is some significant spasms as well in the low back with significant pain with activity changing positions especially. Patient reports her pain is a 9 on scale 10 is worse over the past week 6 on average for its least is a 6 today. Patient ports that sharp and stabbing can be severe in the back and legs as described. Patient reports no loss of motor function but significant fatigability lower extremity especially in the hamstrings and quadriceps. Patient reports is bending waking her from sleep over the past few weeks about every 6-7 hours originally was not doing any difficulty with sleeping also was doing much better with walking distances of activities at work as well as household activities. Physical Exam: VS: Blood pressure is 146/100 pulse 103 respirations 16 temperature is 98.3 F height is 5 foot 1 inch weight is 2 4 0 pounds PE: PHYSICAL EXAMINATION: GENERAL: The patient is awake, alert, oriented, appropriate, very pleasant demeanor HEENT: Shows normocephalic, atraumatic. Extraocular movements are intact and symmetrical. Oral cavity: Mucous membranes moist and pink. NECK: Shows anterior throat supple without palpable lymphadenopathy noted. Swallow reflex symmetrical. CHEST: Shows normal on inspection. Breath sounds are clear bilaterally, no rales rhonchi wheezes auscultated. HEART: Shows S1, S2 clear. No murmurs auscultated. ABDOMEN: Soft, nontender, nondistended, obese. No palpable organomegaly is noted. No rebound or guarding demonstrated. BACK: Shows spine grossly in the midline. Normal-appearing cervical lordotic curvature. There is slightly increased thoracic kyphosis, some minor flattening of the lumbar lordotic curvature. Lumbar paraspinous muscles show symmetrical on inspection, on palpation shows some moderate tenderness diffusely throughout the upper, middle and lower distribution of the paraspinous muscles bilaterally, but without specific trigger points, without radiation of pain. The patient has good rotational motion of the lumbar spine, both laterally as well as extension and flexion without significant difficulty. No tenderness over the spinous processes, sacrum or sacroiliac regions. EXTREMITIES: Lower extremities show deep tendon reflexes 2 in the patellar and tendo calcaneus tendons. Motor exam is 5 on a scale of 5 with right dorsiflexion, extension, quadriceps and hamstring flexion and 5/5 on the left. Peripheral pulses are 1+ posterior tibial. No peripheral edema is noted bilaterally. Lower extremities are warm and dry to touch, equal in color and ap pearance. SKIN: Shows warm and dry, good turgor. No edema. No sores, rashes or bruising throughout. Procedure: Procedure: Options were discussed with the patient. Patient will chart reviews her current medication regimen updated current review of systems updated today as well. We will proceed with a lumbar epidural steroid injection second in the series with fluoroscopic guidance. Risks were discussed including but not limited to: Bleeding, infection, possibility of epidural hematoma and subsequent neurological compromise, dural puncture, headaches, spinal cord and/or nerve damage, side effects of steroid medication, and poor results regarding pain control. Patient understands wished to proceed. Patient will return to the clinic up was counseled as to return appointment activity level and side effects to be aware of. Medication Injected: Med Injected: Procedure is lumbar epidural steroid injection under local anesthetic using sterile prep and drape at the L5-S1 level using C-arm fluoroscopic guidance in both AP and lateral views medications injected is 120 mg Depo-Medrol + 10 mL preservative-free normal saline and 2 mL contrast- condition at discharge is stable patient tolerated procedure well had no complications. Condition at Discharge: Condition at Discharge: Condition at discharge is stable patient tolerated the procedure well and had no complications. SAPNA TELLEZ MD Jun 24, 2020 08:31
== END ==
LOC: PNCL 07:40
PROVIDERS: ATTEND Anesthesiology
DX: M51.16 Intervertebral disc disorders with radiculopathy, lumbar region (principal); M46.1 Sacroiliitis, not elsewhere classified; E03.9 Hypothyroidism, unspecified; F41.9 Anxiety disorder, unspecified; F32.9 Major depressive disorder, single episode, unspecified; Z88.5 Allergy status to narcotic agent; Z88.8 Allergy status to other drugs, medicaments and biological substances; Z98.890 Other specified postprocedural states; Z79.899 Other long term (current) drug therapy
CPT/HCPCS: 62323; J1030; J1040; Q9965

== ENCOUNTER → 2021-09-05 | Outpatient (CLI) | payer OTHER ==
[~2021-09-05] MED LIST changes: +CYCL10TA19 PO; -CYCL10TA2 PO; -IOHEXOL 180 MG/ML 10 ML VIAL. ONE; -methylPREDNISolone ACETATE 40 MG/ML VIAL. ONE; -methylPREDNISolone ACETATE 80 MG/ML VIAL. ONE
[2021-09-05 08:41] LABS: BASO # 0.1 x10^3/uL (0.0-0.2); BASO % 1 % (0-3); EOS # 0.2 x10^3/uL (0.0-0.7); EOS % 2 % (0-3); HEMATOCRIT 40.7 % (36.0-47.0); HEMOGLOBIN 13.7 g/dL (12.0-15.5); LYMPH # 3.1 x10^3/uL (1.0-4.8); LYMPH % 33 % (24-48); MEAN CORPUSCULAR HEMOGLOBIN 29 pg (25-35); MEAN CORPUSCULAR HGB CONC 34 g/dL (31-37); MEAN CORPUSCULAR VOLUME 85 fL (79-100); MONO # 0.5 x10^3/uL (0.0-1.1); MONO % 5 % (0-9); NEUT # 5.5 x10^3/uL (1.8-7.7); NEUT % 58 % (31-73); PLATELET COUNT 397 x10^3/uL (140-400); RED BLOOD COUNT 4.78 x10^6/uL (3.50-5.40); RED CELL DISTRIBUTION WIDTH 13.8 % (11.5-14.5); WHITE BLOOD COUNT 9.4 x10^3/uL (4.0-11.0)
[2021-09-05 09:31] LABS: ALBUMIN 3.8 g/dL (3.4-5.0); ALBUMIN/GLOBULIN RATIO 0.9 (1.0-1.7); CALCIUM 8.9 mg/dL (8.5-10.1); CREATININE 0.8 mg/dL (0.6-1.0); GFR 76.2; POTASSIUM 4.9 mmol/L (3.5-5.1); TOTAL BILIRUBIN 0.6 mg/dL (0.2-1.0); TOTAL PROTEIN 7.9 g/dL (6.4-8.2)
[2021-09-05 09:35] LABS: CHOLESTEROL/HDL RATIO 3.3
== END ==
LOC: LAB 07:37
PROVIDERS: ATTEND Family Medicine
DX: Z13.220 Encounter for screening for lipoid disorders (principal); I49.3 Ventricular premature depolarization; R73.09 Other abnormal glucose
CPT/HCPCS: 36415; 80053; 80061; 83036; 85025

== ENCOUNTER → 2022-01-21 | Outpatient (CLI) | payer OTHER ==
--- NOTE | 2022-01-22 08:04 | RAD ---
Bilateral digital screening 2-D and 3-D (digital breast tomosynthesis) mammogram: Reason for examination: Routine screening. Comparison: Mammogram from 01/08/2020 and 12/09/2016. Interpretation was made with the benefit of CAD. FINDINGS: Breast density: Category A. Breast tissue is almost entirely fatty. No suspicious breast mass, malignant appearing calcifications, or architectural distortion is seen. T here are tiny asymmetries in both breasts consistent with focal fibrocystic change or other benign le sions. IMPRESSION: No evidence of malignancy. Assessment: BI-RADS 2. Benign findings. Recommendation: Routine screening mammograms. The patient will receive a letter with the results in the mail. Patient information will be entered i nto the mammography reminder system with a target recall date for the next mammogram. A reminder callum er will be generated. Electronically signed by: Chyna Mehta MD (01/22/2022 8:01 AM) [id number]
== END ==
LOC: MAMMO 13:37
PROVIDERS: ATTEND Family Medicine
DX: Z12.31 Encounter for screening mammogram for malignant neoplasm of breast (principal)
CPT/HCPCS: 77063; 77067